=== PATIENT | male | born 1970 | race Caucasian/White ===

== ENCOUNTER 2022-12-30 10:31 | Outpatient (AMB) | payer OTHER, SELFPAY ==
[2022-12-30 10:46] VITALS: BP 159/95; PULSE 77; BMI 25.5
--- NOTE | 2022-12-30 10:46 | A.OFFVIS_ITS ---
Intake Vital Signs 12/30/22 10:46 Height 5 ft 8.5 in Weight 170 lb 3.15 oz BMI 25.5 BP 159/95 H Blood Pressure Location Lt brachial Position Sitting Pulse 77 Intake Visit Reasons: Colonoscopy Screening Intake Note: Freddie presents in office as a new.patient for a colonoscopy screening. 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 He has very good appetite. No cardiac or respiratory issues New nausea, vomiting, hematemesis, hematochezia fever or chills PFSH Medical History Elevated blood pressure reading Surgical History History of tonsillectomy Status post myringotomy with tube placement of both ears Family History Father Hypertension Impaired fasting glucose Mother No problems noted. 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 Cognitive needs: No Hearing needs: No Vision needs: Yes (glasses) Review of Systems Const All systems reviewed & are unremarkable except as noted in HPI and below Card Denies chest pain and Denies dyspnea Resp Denies dyspnea GI Denies abdominal pain, Denies change in bowel habits, Denies heartburn, Denies diarrhea and Denies nausea Physical Exam Vital Signs: Last Vital Signs Pulse 77 12/30/22 10:46 BP 159/95 H 12/30/22 10:46 BMI result Body Mass Index 25.5 Const General: cooperative, healthy appearing, comfortable and no acute distress Eyes Sclerae: sclerae normal Resp Effort & Inspection: normal respiratory effort and able to speak in complete sentences Auscultation: clear to auscultation bilaterally, no rales, no rhonchi and no wheezes Cardio Rate: regular rate Rhythm: regular rhythm Heart sounds: S1 normal heart sound present and S2 normal heart sound present GI Inspection: Yes normal to inspection Palpation (GI): Soft to palpation and nontender Auscultation: normal bowel sounds Skin General skin exam: no rashes or lesions noted Extrem General: Yes full ROM Psych Appearance: grossly normal and well kempt Mental Status: mental status grossly normal Speech and movement: Normal speech and movement present and Clear speech present Affect: normal affect Attitude: cooperative Thought process: Normal thought process present Thought content: Normal thought content present Assessment & Plan Assessment & Plan (1) Colon cancer screening: Code(s): Z12.11 - Encounter for screening for malignant neoplasm of colon Plan: Index screening colonoscopy- MG prep Plan Index screening MiraLax Gatorade prep Orders: Orders Colonoscopy - GI Use Only 12/30/22 Z12.11 - Encounter for screening for malignant neoplasm of colon Medications: New bisacodyl (Dulcolax (bisacodyl)) Take 4 tablets by mouth at 12:00pm the day before your procedure. 20 mg (4 x 5 mg) PO ONCE 1 day 4 tabs 0RF colonoscopy prep Z12.11 - Encounter for screening for malignant neoplasm of colon polyethylene glycol 3350 (Miralax) Take as directed by mouth the day before your procedure. 238 grams PO ONCE 1 day PRN 238 grams 0RF laxative effect Patient Instructions: A 52 y/o male referred for index screening colonoscopy Discussed procedure, risk, need for escort-MiraLax Gatorade split prep literature given Encouraged to call with questions or concerns Appreciate the opportunity to assist in the care of the pain Coding Level of Care Code New Pt Level 3 (59734) Diagnoses Colon cancer screening Z12.11
== END 2022-12-30 12:26 | disposition home or self-care (01) ==
PROVIDERS: Visit Provider Physician Assistant
DX: Z01.818 Encounter for other preprocedural examination (principal); Z12.11 Encounter for screening for malignant neoplasm of colon
CPT/HCPCS: 99203

== ENCOUNTER → 2022-12-30 10:31 | Outpatient (BNVA) | payer OTHER, SELFPAY | PROVIDERS: Visit Provider Physician Assistant ==

== ENCOUNTER 2023-03-23 07:47 | Outpatient (REF) | payer OTHER, SELFPAY ==
[2023-03-23 07:57] LABS: MANUAL DIFF FLAG NO
[2023-03-23 08:56] LABS: Basophils Percent Auto 0.7 % (0-2); Eosinophils Absolute Auto 0.2 X10*3/uL (0.0-0.4); Eosinophils Percent Auto 3.5 % (0-4); Hematocrit 47.7 % (42.0-52.0); Hemoglobin 16.6 g/dl (14.0-18.0); Imm Gran Abs Auto 0.02 X10*3/uL (0.00-0.03); Imm Gran Pct Auto 0.3 % (0.0-0.4); Lymphocytes Absolute Auto 2.2 X10*3/uL (1.2-4.9); Lymphocytes Percent Auto 35.8 % (20-40); Mean Corpuscular HGB Conc 34.8 g/dl (31.0-36.0); Mean Corpuscular Hemoglobin 31.9 pg (27.0-33.0); Mean Corpuscular Volume 91.7 fL (80.0-98.0); Mean Platelet Volume 9.5 fL (9.4-12.4); Monocytes Absolute Auto 0.5 X10*3/uL (0.1-1.2); Monocytes Percent Auto 8.3 % (2-11); Neutrophils Absolute Auto 3.1 x10*3/uL (2.0-8.3); Neutrophils Percent Auto 51.4 % (45-73); Platelet Count 259 X10*3/uL (160-400); Red Cell Distribution Width 11.9 % (11.0-16.0)
[2023-03-23 09:34] LABS: Alanine Aminotransferase 8 U/L (0-40); Albumin Level 4.5 g/dL (3.5-5.0); Alkaline Phosphatase 62 U/L (39-117); Anion Gap 12 (12-20); Aspartate Amino Transferase 16 U/L (5-37); Bilirubin Total 0.7 mg/dL (0.0-1.0); Blood Urea Nitrogen 18 mg/dL (9-16); Calcium 10.1 mg/dL (8.4-10.2); Carbon Dioxide 30 mmol/L (22-29); Chloride 103 mmol/L (96-108); Cholesterol 205 mg/dL (<200); Estimated Glomerular Filt Rate > 60; Glucose Fasting 89 mg/dL (60-99); HDL Cholesterol 59 mg/dL (>40); LDL Cholesterol Calculated 130 mg/dL (<100); Potassium 4.5 mmol/L (3.3-5.1); Sodium 140 mmol/L (135-145); Total Protein 7.2 g/dL (6.5-8.0); Triglycerides 84 mg/dL (<150)
[2023-03-23 09:38] LABS: Appearance Urine Clear; Color Urine Yellow; Glucose Urine UA Negative (Negative); Leukocyte Esterase Urine Trace (Negative); Nitrite Urine Negative (Negative); PH 5.5 (5.0-9.0); Specific Gravity - Urine 1.025 (1.005-1.025); UMIC TRIGGER UACC YES; Urine Blood Negative (Negative); Urine Ketones Negative (Negative); Urine Protein Negative (Neg-Trace)
[2023-03-23 09:42] LABS: Bacteria Urine None Seen (None Seen); Hyaline Casts Urine 0-2 /LPF (0-2); RBC Urine 0-2 /HPF (0-2); Squamous Epithelial Cell Urine 0-2 /HPF (0-2); WBC Urine 0-5 /HPF (0-5)
[2023-03-23 09:45] LABS: Prostate Specific Antigen Scr 0.48 ng/mL (<0.05-4.0)
[2023-03-23 09:56] LABS: Vitamin D 25-OH Total 33.5 ng/mL (>30)
== END 2023-03-23 07:48 | disposition home or self-care (01) ==
LOC: HO.LAB 07:47
PROVIDERS: PCP Internal Medicine; Visit Provider Internal Medicine
DX: Z00.00 Encounter for general adult medical examination without abnormal findings (principal); E78.00 Pure hypercholesterolemia, unspecified; E55.9 Vitamin D deficiency, unspecified
CPT/HCPCS: 36415; 80053; 80061; 81001; 82306; 84153; 84443; 85025

== ENCOUNTER 2023-03-29 15:23 | Outpatient (AMB) | payer OTHER, SELFPAY ==
[2023-03-29 15:31] VITALS: BP 158/94; PULSE 87; O2SAT 99; BMI 25.0
--- NOTE | 2023-03-29 15:31 | MHC.PC.OV ---
Vital Signs 03/29/23 15:31 03/29/23 16:09 Height 5 ft 8.5 in Weight 167 lb 2 oz BMI 25.0 BP 158/94 H 160/86 H Blood Pressure Location Lt brachial Lt brachial Position Sitting Sitting Pulse 87 Pulse Source Pulse Oximeter Pulse Oximetry (%) 99 Oxygen Delivery Method Room Air Intake Visit Reasons: elevated BP Tax Clerk Required: No Accompanied by: Self / Same As Patient Allergies No Known Allergies Allergy (Verified 09/28/23 16:30) Medication List - Last Reconciled 03/29/23 by Jeancarlos Denton MD bisacodyl (Dulcolax (bisacodyl)) 20 mg (4 x 5 mg) PO ONCE 1 day polyethylene glycol 3350 (Miralax) 238 grams PO ONCE PRN 1 day Tobacco use date assessed: 03/29/23 Dental Screening Dental Screen Date: 03/29/23 Did you have a dental visit in the last 12 months?: Yes Did you have a dental problem in the last 6 months where you did not have access to dental care?: No Was dental information given to patient?: Patient has dentist HPI elevated BP HPI Details Patient comes in today for his follow up visit States that he feels okay Notes that his blood pressure is still running high often but he denies any headaches or dizziness Denies any chest pains, no SOB No nausea/vomiting, no abdominal pain No change in bowel habits noted He is now scheduled for his colonoscopy in July 2023 He had his follow up labs done last week - to discuss his results [facility] Medical History (Updated 09/28/23 @ 16:41 by Jeancarlos Denton MD) Pure hypercholesterolemia Essential hypertension Surgical History (Updated 09/28/23 @ 16:42 by Jeancarlos Denton MD) Hx of colonoscopy Status post myringotomy with tube placement of both ears History of tonsillectomy Family History Father Hypertension Impaired fasting glucose Mother No problems noted. 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 1. Little interest or pleasure in doing things: not at all 2. Feeling down, depressed, or hopeless: not at all 3. Trouble falling or staying asleep, or sleeping too much: not at all 4. Feeling tired or having little energy: not at all 5. Poor appetite or overeating: not at all 6. Feeling bad about yourself - or that you are a failure or have let yourself or your family down: not at all 7. Trouble concentrating on things, such as reading the newspaper or watching television: not at all 8. Moving or speaking so slowly that other people could have noticed. Or the opposite - being so fidgety or restless that you have been moving around a lot more than usual: not at all 9. Thoughts that you would be better off or of hurting yourself in some way: not at all Total score: 0 Depression Screening Interpretation: Negative Depression Screening Done: Yes 09559 - PHQ-9 Billing: Yes Source: Developed by Drs. Leif Hale, Evelia Craig, Drew Wright and colleagues, with an educational nato from [employer]. Thrive Questionnaire Date Thrive assessed: 03/29/23 I am a: Patient What is your living situation today?: I have a steady place to live Within the past 12 months, did the food you bought not last and you didn't have the money to get more?: Never true Within the past 12 months, did you worry whether your food would run out before you got money to buy more?: Never true Do you have trouble paying for medicines?: No Do you have trouble getting transportation to medical appointments?: No Do you have trouble paying your heating and electricity bill?: No Do you have trouble taking care of your child, family member or friend?: No Do you have trouble with day-to-day activities such as bathing, preparing meals, shopping, managing finances, etc.?: No Are you currently unemployed and looking for a job?: No Are you interested in more education?: No Please select the resources that you would like help with: None Currently or been in a relationship where the following occur: no concerns reported AUDIT C Alcohol Use Questionnaire (AUDIT-C) 1. How often do you have a drink containing alcohol?: Monthly or less 2. How many drinks containing alcohol do you have on a typical day when you are drinking?: 1 or 2 3. How often do you have six or more drinks on one occasion?: Never Total Score: 1 Score Reviewed/Action Taken: Yes BERTRAM-7 AMB Questionnaire BERTRAM-7 Date BERTRAM - 7 assessed: 03/29/23 Feeling nervous, anxious, or on edge: 0 = Not at all Not being able to stop or control worryin = Not at all Worrying too much about different things: 0 = Not at all Trouble relaxin = Not at all Being so restless that it is hard to sit still: 0 = Not at all Becoming easily annoyed or irritable: 0 = Not at all Feeling afraid as if something awful might happen: 0 = Not at all Total BERTRAM-7 score (0-4 normal; 5-9 mild; 10-14 moderate; 15-21 severe): 0 Source: Developed by Drs. Leif Hale, Evelia Craig, Drew Wright and colleagues, with an educational nato from [employer]. Review of Systems Const Denies chills, Denies fatigue, Denies fever(s) and Denies headache(s) ENT Denies dysphagia, Denies dizziness, Denies otalgia, Denies headache(s), Denies neck pain, Denies odynophagia and Denies sore throat Card Denies chest pain, Denies palpitations and Denies dyspnea Resp Denies cough and Denies dyspnea GI Denies abdominal pain, Denies constipation, Denies dysphagia, Denies heartburn, Denies diarrhea, Denies nausea, Denies odynophagia and Denies vomiting Denies dysuria, Denies nocturia and Denies urinary frequency Musc Denies back pain and Denies neck pain Skin/Breast Denies rash Neuro Denies dizziness and Denies headache(s) Endo Denies fatigue and Denies palpitations Physical exam (Primary Care) Vital Signs: Last Vital Signs Pulse 87 03/29/23 15:31 BP 160/86 H 03/29/23 16:09 Pulse Ox 99 03/29/23 15:31 Oxygen Delivery Method Room Air 03/29/23 15:31 BMI result Body Mass Index 25.0 Tobacco/Smoking Status: Tobacco use Status Tobacco use date assessed 03/29/23 03/29/23 15:33 Patient Tobacco Use Status Never used Tobacco 03/29/23 15:33 e-Cigarette/Vaping Use Never Used 03/29/23 15:33 PHQ-9: PHQ-9 Score PHQ-9: Total score 0 03/29/23 16:04 Depression Screening Interpretation: Negative Thrive Assessment: Date of Thrive Assessment Date Thrive assessed 03/29/23 03/29/23 15:33 Currently or been in a relationship where the following occur: no concerns reported Const General: no acute distress and alert HENMT Ears: TM's normal bilaterally and EAC's normal Throat: Yes posterior oropharynx normal and Yes tonsils normal (no TP congestion) Neck Neck: Yes no lymphadenopathy and Yes supple Thyroid: Thyroid normal Resp Auscultation: clear to auscultation bilaterally, no rales and no wheezes Cardio Rate: regular rate Rhythm: regular rhythm Heart sounds: no murmurs GI Palpation (GI): Soft to palpation and nontender Auscultation: normal bowel sounds General: Yes no CVA tenderness Back/Spine/Pelvis Back: no CVA tenderness Skin Rashes: no rashes Extrem General: Yes no clubbing, cyanosis or edema Results Reviewed Results Reviewed: Laboratory Tests 03/23/23 07:55 WBC 6.0 Hgb 16.6 Hct 47.7 Plt Count 259 Sodium 140 Potassium 4.5 Creatinine 1.17 Estimated GFR > 60 Fasting Glucose 89 Calcium 10.1 AST 16 ALT 8 Triglycerides 84 Cholesterol 205 H LDL Cholesterol, Calc 130 H HDL Cholesterol 59 PSA Screen 0.48 25-OH Vitamin D Total 33.5 TSH 2.20 Ur Specific [place] 1.025 Urine Protein Negative Urine Glucose (UA) Negative Urine Blood Negative Urine Nitrite Negative Ur Leukocyte Esterase Trace H Assessment and Plan Assessment & Plan (1) Essential hypertension: Code(s): I10 - Essential (primary) hypertension Plan: Reinforced low sodium diet - goal is systolic BP of 120 mm or less Will go ahead and start patient on Lisinopril 2.5 mg QD Patient is reminded to continue monitoring his blood pressure regularly (2) Pure hypercholesterolemia: Code(s): E78.00 - Pure hypercholesterolemia, unspecified Plan: Results of his labs done last week reviewed and discussed with patient He is advised that his LDL cholesterol level is borderline high; all of his other labs are mostly within normal or acceptable parameters Discussed low cholesterol diet and advised that if he can get his cholesterol levels improved with diet modification, he should not require any Rx for this Will recheck his fasting lipids and labs in 6 months for follow up Plan Follow up in 6 months Orders: Orders Lipid Panel 6 Months E78.00 - Pure hypercholesterolemia, unspecified Comprehensive [place]. Panel Fast 6 Months E78.00 - Pure hypercholesterolemia, unspecified Medications: New lisinopril 2.5 mg PO DAILY 90 tabs 1RF 90 days Coding Level of Care Code Est Pt Level 4 (70542) Diagnoses Essential hypertension I10 Pure hypercholesterolemia E78.00
[2023-03-29 16:09] VITALS: BP 160/86
== END 2023-03-29 16:08 | disposition home or self-care (01) ==
PROVIDERS: Visit Provider Internal Medicine
DX: I10 Essential (primary) hypertension (principal); E78.00 Pure hypercholesterolemia, unspecified
CPT/HCPCS: 99499

== ENCOUNTER 2023-08-01 10:50 | Day surgery (SDC) | payer OTHER, SELFPAY ==
[2023-07-28 16:55] VITALS: BMI 25.5
--- NOTE | 2023-07-29 12:03 | HO.ANESPROP2 ---
Documented by User: Siri Wood NP 07/29/23 12:03 HPI - Anesthesia Eval Consult details Narrative: 53yo M for Colonoscopy [facility] Active Problems Active Problems: All Active Problems (Updated 09/24/22 @ 18:43 by Jeancarlos Denton MD) Colon cancer screening (Acute) Elevated blood pressure reading (Acute) Annual physical exam (Acute) Past Medical History Medical History Elevated blood pressure reading Family History Family History Father Hypertension Impaired fasting glucose Mother No problems noted. 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 Cognitive needs: No Hearing needs: No Vision needs: Yes (glasses) Meds Allergies Allergy/AdvReac Type Severity Reaction Status Date / Time No Known Allergies Allergy Verified 03/29/23 15:59 Exam Height,Weight and Vital Signs: Height 5 ft 8.5 in Weight 77.111 kg Assessment and Plan Assessment Anesthesia Assessment: Chart Reviewed Documented by User: Samira Mukherjee MD 08/01/23 11:22 [facility] Past Medical History Medical History Elevated blood pressure reading Family History Family History Father Hypertension Impaired fasting glucose Mother No problems noted. 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 Cognitive needs: No Hearing needs: No Vision needs: Yes (glasses) Meds Allergies Allergy/AdvReac Type Severity Reaction Status Date / Time No Known Allergies Allergy Verified 03/29/23 15:59 Exam Airway Mallampati Class: I (missing a couple, denies anythig loose) TM Dist: >3cm Neck ROM: Full Heart: rrr Lungs: cta Assessment and Plan Assessment Anesthesia Assessment: Anesthesia Plan Discussed Final Anesthetic Review Family History of Problems with Anesthesia: No History of Problems with Anesthesia: No NPO: Yes ASA Class: II Final Preanesthetic Review: No Changes in Pt Med Stat, Meds/Allgs Chart Reviewed and Consent Obtained/Reviewed Patient Risk: Low Procedure Risk: Low Anesthetic Plan Anesthetic Plan: MAC: Disposition: Standard PACU
[2023-08-01 11:03] VITALS: BMI 25.0
[2023-08-01 11:16] VITALS: BP 151/96; PULSE 86; RESP 18; TEMP 36.3; O2SAT 99
[2023-08-01 11:24] VITALS: BMI 25.0
[2023-08-01] MEDS: Lactated Ringers 1,000 ML 100 ML IVCONT (11:29)
--- NOTE | 2023-08-01 11:40 | MHC.SHP ---
Pre-Procedural Eval Section A - 24 Hr Update-Section A only Date of Service: 08/01/23 The patient is an INPATIENT: No The patient has been examined within 24 hours of the surgical procedure. The History & Physical has been completed within 30 days and I have reviewed it.: No Section B - Complete if H&P > 30 days Chief Complaint: screening Relevant Family History (Specify if Yes): No Relevant Social History: None Present Medications: see Short Stay Collaborative assessment Medical History: No relevant PMH History of Previous Operations: Relevant previous surgery/procedure and date(s) (History of tonsillectomy Status post myringotomy with tube placement of both ears) Allergies: Allergies Allergy/AdvReac Type Severity Reaction Status Date / Time No Known Allergies Allergy Verified 03/29/23 15:59 Review of Systems Sugical H&P ROS: Negative: Constitution, Cardiovascular, Respiratory and Gastrointestinal Exam Surgical H&P Exam: Normal: Heart, Normal: Lungs, Normal: Extremities and Normal: Abdomen Plan Diagnosis/Plan: Unchanged I have reviewed the history and physical and performed a pertinent physical examination on my patient. No changes have occurred unless specified. Time Spent With Patient Time: Total time managing care of this patient today ____ minutes.
--- NOTE | 2023-08-01 11:45 | P.OP_ITS ---
Operative Note Operative Note Date of Service: 08/01/23 Narrative: COLONOSCOPY TILL CECUM WITH BIOPSIES AND SNARE POLYPECTOMY Pre-op diagnosis: Colon cancer screening - 1st colonoscopy Post-op diagnosis:? Colon polyps, diverticulosis, hemorrhoids Endoscopist:? Jl Gonzalez MD Anesthesia:?MAC Consent: Indications for the procedure and potential complications of bleeding, perforation, reaction to medications and missed diagnosis were discussed with the patient and informed consent was obtained. Instrument: Olympus CF H 190 L variable stiffness adult colonoscope Monitoring: Vital signs and clinical assessment, intermittent blood pressure monitoring, continuous EKG monitoring, Pulse oximetry and Carbon Dioxide monitoring were done throughout the procedure. Please see anesthesia flowsheet. Colon withdrawl time was 21 minutes. Procedure: The patient was placed in the left lateral decubitis position and pre-procedure medications were administered. After a digital rectal examination of the ano-rectum, the video colonoscope was inserted into the rectum and advanced through the colon to the cecum. The colonoscope was slowly withdrawn in a retrograde panoramic fashion and the colon mucosa was carefully examined including a retroflexed view of the rectum. Findings and interventions are described below. Procedure Difficulty: Without difficulty Findings: Terminal Ileum: Not evaluated Cecum: Normal Ascending Colon: A 6-7 mm sessile polyp in the proximal ascending colon - removed with a cold snare. 4-5 mm sessile polyp - removed with a cold biopsy Transverse Colon: Normal Descending Colon: Moderate diverticulosis Sigmoid Colon: Three 5-7 mm sessile polyp - removed with a cold snare. Moderate diverticulosis Rectum: Two 4-5 mm sessile polyps - removed with a cold snare. A 10-12 mm sessile polyp - removed with a hot snare. Ano-rectum: Small internal hemorrhoids Colon preparation: Excellent [place] Bowel Preparation Scale Right colon; 3 Transverse colon: 3 Left colon; 3 (0 = Unprepared colon segment with mucosa not seen due to solid stool that cannot be cleared. 1 = Portion of mucosa of the colon segment seen, but other areas of the colon segment not well seen due to staining, residual stool and/or opaque liquid. 2 = Minor amount of residual staining, small fragments of stool and/or opaque liquid, but mucosa of colon segment seen well. 3 = Entire mucosa of colon segment seen well with no residual staining, small fragments of stool or opaque liquid) Impression and Post Procedure Diagnosis: Colonoscopy Findings: Seven small and one medium sized polyps removed Moderate diverticulosis seen in the left colon Small hemorrhoids on retroflexed exam. Plan: Await pathology results Patient has an appointment on 08/16/23 in the GI [facility] with JENY Rapp. Repeat Colonoscopy interval based on path results - in 2-3 years if multiple casey yps are adenomatous and 10 years if polyps are hyperplastic. Above findings were reviewed with the patient and colon polyps and diverticulosis handouts were given in the discharge area
[2023-08-01 12:25] VITALS: BP 116/79; PULSE 90; RESP 16; TEMP 36.4; O2SAT 99
[2023-08-01 12:41] VITALS: BP 121/82; PULSE 78; RESP 17; TEMP 36.4; O2SAT 99
== END 2023-08-01 13:15 | disposition home or self-care (01) ==
PROVIDERS: Visit Provider Internal Medicine Gastroenterology
PROC: 0DJD8ZZ Inspection of Lower Intestinal Tract, Via Natural or Artificial Opening Endoscopic (ICD-10-PCS; CPT 45378; principal; 2023-08-01 12:40)
DX: Z12.11 Encounter for screening for malignant neoplasm of colon (principal); D12.2 Benign neoplasm of ascending colon; K63.5 Polyp of colon; K62.1 Rectal polyp; K57.30 Diverticulosis of large intestine without perforation or abscess without bleeding; K64.8 Other hemorrhoids; R03.0 Elevated blood-pressure reading, without diagnosis of hypertension; Z98.890 Other specified postprocedural states
CPT/HCPCS: 45385; 45380; 88305; J2704

== ENCOUNTER → 2023-08-01 10:50 | Outpatient (BNV) | payer OTHER, SELFPAY | PROVIDERS: Visit Provider Internal Medicine Gastroenterology | DX: Z12.11 Encounter for screening for malignant neoplasm of colon (principal); K63.5 Polyp of colon; K57.90 Diverticulosis of intestine, part unspecified, without perforation or abscess without bleeding; K64.8 Other hemorrhoids | CPT/HCPCS: 45380; 45385 ==

== ENCOUNTER 2023-08-30 13:18 | Outpatient (AMB) | payer OTHER, SELFPAY ==
--- NOTE | 2023-08-30 13:26 | MHC.OFFVIS ---
Intake Vital Signs 08/30/23 13:27 Height 5 ft 8.5 in Weight 160 lb 14.999 oz BMI 24.1 BP 146/84 H Blood Pressure Location Lt brachial Position Sitting Pulse 95 Intake Visit Reasons: S/p colon Intake Note: Freddie presents in the office as a follow up colonoscopy. CC: He states that he is just here for the results - everything went well. Allergies No Known Allergies Allergy (Verified 08/30/23 13:28) Medication List - Last Reconciled 08/30/23 by Layne Yanez PA-C lisinopril 2.5 mg PO DAILY 90 days HPI HPI Comments History of Present Illness Details A pleasant 53-year-old male follows up after recent index screening colonoscopy with polypectomy He tolerated procedure well We reviewed procedure report, pathology as well as recommendations Diverticulosis, polyps as well as hemorrhoids Opportunity for questions answered to his satisfaction Reviewed high-fiber diet menu choices literature given He has had no issues with hemorrhoid PFSH Medical History Elevated blood pressure reading Surgical History Hx of colonoscopy Status post myringotomy with tube placement of both ears History of tonsillectomy Family History Father Hypertension Impaired fasting glucose Mother No problems noted. Social History Housing: House Alcohol intake: current Alcohol intake frequency: a few times a month Patient Tobacco Use Status: Never used Tobacco e-Cigarette/Vaping Use: Never Used Second Hand Smoke Exposure: No service: No Current occupational status: employed Current occupation: [employer] Cognitive needs: No Hearing needs: No Vision needs: Yes (glasses) Review of Systems Const All systems reviewed & are unremarkable except as noted in HPI and below Physical Exam Vital Signs: Last Vital Signs Pulse 95 08/30/23 13:27 BP 146/84 H 08/30/23 13:27 BMI result Body Mass Index 24.1 Const General: cooperative, healthy appearing, comfortable and no acute distress Orientation/consciousness: patient oriented x3 Limitations: no limitations Skin General skin exam: no rashes or lesions noted Neuro General: patient oriented x3 Extrem General: Yes full ROM Psych Appearance: grossly normal and well kempt Mental Status: mental status grossly normal Speech and movement: Normal speech and movement present Affect: normal affect Attitude: cooperative Thought process: Normal thought process present Thought content: Normal thought content present Insight: Good insight present (Psych) Judgement: Good judgement present (Psych) Results Reviewed Results Reviewed: Impression and Post Procedure Diagnosis: Colonoscopy Findings: Seven small and one medium sized polyps removed Moderate diverticulosis seen in the left colon Small hemorrhoids on retroflexed exam. Plan: Await pathology results Patient has an appointment on 08/16/23 in the [facility] with JENY Rapp. Repeat Colonoscopy interval based on path results - in 2-3 years if multiple polyps are adenomatous and 10 years if polyps are hyperplastic. Above findings were reviewed with the patient and colon polyps and diverticulosis handouts were given in the discharge area markel: Freddie Agarwal Age/Sex: 53/M Attending: Jl Gonzalez MD : 1970 Submitted by: Jl Gonzalez MD Copies to: MR #: [id number] Status: [facility] Collected: 08/01/23 Location: [facility] Received: 08/01/23 Diagnosis A. Colon, ascending, polyps: Tubular adenomas, two; negative for high-grade dysplasia and carcinoma. B. Colon, sigmoid, polyps: Hyperplastic polyps, two. C. Colon, rectal polyps: Hyperplastic polyps, two, and polypoid colonic mucosa with minor hyperplastic changes and prominent muscularis suggesting polypoid leiomyoma. Clinical History Pre-Op Dx: Screening Post-Op Dx: Colon polyps, diverticulosis and hemorrhoids Microscopic Description Microscopic sections reviewed. Material Received A. Ascending colon polyps B. Sigmoid polyps C. Rectal polyps Gross Description A. Received in formalin are 2 mann 2 mm soft tissue fragments, totally submitted in A1. B. Received in formalin are 4 mann 2 mm soft tissue fragments, totally submitted in B1. C. Received in formalin are 3 mann 2-6 mm soft tissue fragments, the larger of which is inked at the base and bisected, totally submitted in C1. (JEVON) NOTE: Unless otherwise stated, all tissue is formalin-fixed and paraffin-embedded. Some or all of the immunohistochemical tests reported herein may have been developed and their performance characteristics determined by [facility]. They have not been cleared or approved by the U.S. Food and Drug Administration (FDA). However, the FDA has determined that such clearance or approval is not necessary. This laboratory is certified under the Clinical Laboratory Improvement Amendments of 1988 (CLIA) as qualified to perform high complexity clinical laboratory testing. Electronically Signed By: Svitlana Tamez 08/02/23 1136 Patient: Freddie Agarwal Age/Sex: 53/M MR#: [id number] Page 1 of 1 Assessment & Plan Assessment & Plan (1) Tubular adenoma: Code(s): D36.9 - Benign neoplasm, unspecified site Plan: Repeat asymptomatic colonoscopy 3 (2) Hyperplastic colon polyp: Code(s): K63.5 - Polyp of colon (3) Diverticulosis of colon: Code(s): K57.30 - Diverticulosis of large intestine without perforation or abscess without bleeding Plan: ER protocol Maintain high-fiber diet (4) Hemorrhoids: Code(s): K64.9 - Unspecified hemorrhoids Plan: Avoid straining Plan HFD AFDR- begin screen @ 43 Colonoscopy- 3 years Patient Instructions: 53-year-old male follows up after recent index screening colonoscopy with polypectomy Seven polyps in total, 2 of which were adenomas repeat asymptomatic colonoscopy 3 years as requested by MD All first-degree relatives begin screening at age 43 Reviewed diverticulosis/diverticulitis ER protocol Maintain high-fiber diet Fiber supplements would be beneficial if unable to maintain Foods to avoid nuts, seeds, corn ETC P Coding Level of Care Code Est Pt Level 3 (87788) Diagnoses Tubular adenoma D36.9 Hyperplastic colon polyp K63.5 Diverticulosis of colon K57.30 Hemorrhoids K64.9 Time Spent (min) 20
[2023-08-30 13:27] VITALS: BP 146/84; PULSE 95; BMI 24.1
== END 2023-08-30 14:33 | disposition home or self-care (01) ==
PROVIDERS: PCP Internal Medicine; Visit Provider Physician Assistant
DX: D36.9 Benign neoplasm, unspecified site (principal); K63.5 Polyp of colon; K57.30 Diverticulosis of large intestine without perforation or abscess without bleeding; K64.9 Unspecified hemorrhoids
CPT/HCPCS: 99213

== ENCOUNTER → 2023-08-30 13:18 | Outpatient (BNVA) | payer OTHER, SELFPAY | PROVIDERS: PCP Internal Medicine; Visit Provider Physician Assistant | DX: D36.9 Benign neoplasm, unspecified site (principal); K63.5 Polyp of colon; K57.30 Diverticulosis of large intestine without perforation or abscess without bleeding; K64.9 Unspecified hemorrhoids | CPT/HCPCS: 99212 ==

== ENCOUNTER 2023-09-21 07:40 | Outpatient (REF) | payer OTHER, SELFPAY ==
[2023-09-21 09:15] LABS: Alanine Aminotransferase 8 U/L (0-40); Albumin Level 4.3 g/dL (3.5-5.0); Alkaline Phosphatase 51 U/L (39-117); Anion Gap 11 (12-20); Aspartate Amino Transferase 14 U/L (5-37); Bilirubin Total 0.6 mg/dL (0.0-1.0); Blood Urea Nitrogen 12 mg/dL (9-16); Calcium 9.5 mg/dL (8.4-10.2); Carbon Dioxide 31 mmol/L (22-29); Chloride 104 mmol/L (96-108); Cholesterol 196 mg/dL (<200); Estimated Glomerular Filt Rate > 60; Glucose Fasting 94 mg/dL (60-99); HDL Cholesterol 63 mg/dL (>40); LDL Cholesterol Calculated 116 mg/dL (<100); Potassium 4.4 mmol/L (3.3-5.1); Sodium 142 mmol/L (135-145); Triglycerides 87 mg/dL (<150)
== END 2023-09-21 07:41 | disposition home or self-care (01) ==
LOC: HO.LAB 07:40
PROVIDERS: PCP Internal Medicine; Visit Provider Internal Medicine
DX: E78.00 Pure hypercholesterolemia, unspecified (principal)
CPT/HCPCS: 36415; 80053; 80061

== ENCOUNTER 2023-09-28 15:49 | Outpatient (AMB) | payer OTHER, SELFPAY ==
[2023-09-28 15:49] VITALS: BP 122/78; PULSE 95; O2SAT 97; BMI 24.0
--- NOTE | 2023-09-28 15:49 | A.OFFPC_ITS ---
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: No Allergies No Known Allergies Allergy (Verified 09/28/23 16:30) Medication List - Last Reconciled 09/28/23 by Jeancarlos Denton MD lisinopril 2.5 mg PO DAILY 90 days Tobacco use date assessed: 09/28/23 Dental Screening Dental Screen Date: 09/28/23 HPI 6mth f/u HPI Details Patient comes in today for his follow up visit States that he feels okay He denies any headaches or dizziness Denies any chest pains, no SOB No nausea/vomiting, no abdominal pain No change in bowel habits noted Had his follow up labs done last week - to discuss his results [facility] Medical History (Updated 09/28/23 @ 16:41 by Jeancarlos Denton MD) Pure hypercholesterolemia Essential hypertension Surgical History (Updated 09/28/23 @ 16:42 by Jeancarlos Denton MD) Hx of colonoscopy Status post myringotomy with tube placement of both ears History of tonsillectomy Family History Father Hypertension Impaired fasting glucose Mother No problems noted. 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 1. Little interest or pleasure in doing things: not at all 2. Feeling down, depressed, or hopeless: not at all 3. Trouble falling or staying asleep, or sleeping too much: not at all 4. Feeling tired or having little energy: not at all 5. Poor appetite or overeating: not at all 6. Feeling bad about yourself - or that you are a failure or have let yourself or your family down: not at all 7. Trouble concentrating on things, such as reading the newspaper or watching television: not at all 8. Moving or speaking so slowly that other people could have noticed. Or the opposite - being so fidgety or restless that you have been moving around a lot more than usual: not at all 9. Thoughts that you would be better off or of hurting yourself in some way: not at all Total score: 0 Depression Screening Interpretation: Negative Depression Screening Done: Yes 91152 - PHQ-9 Billing: Yes Source: Developed by Drs. Leif Hale, Evelia Craig, Drew Wright and colleagues, with an educational nato from [employer]. Thrive Questionnaire Date Thrive assessed: 09/28/23 I am a: Patient What is your living situation today?: I have a steady place to live Within the past 12 months, did the food you bought not last and you didn't have the money to get more?: Never true Within the past 12 months, did you worry whether your food would run out before you got money to buy more?: Never true Do you have trouble paying for medicines?: No Do you have trouble getting transportation to medical appointments?: No Do you have trouble paying your heating and electricity bill?: No Do you have trouble taking care of your child, family member or friend?: No Do you have trouble with day-to-day activities such as bathing, preparing meals, shopping, managing finances, etc.?: No Are you currently unemployed and looking for a job?: No Are you interested in more education?: No Please select the resources that you would like help with: None Currently or been in a relationship where the following occur: no concerns reported THRIVE Score: 0 AUDIT C Alcohol Use Questionnaire (AUDIT-C) 1. How often do you have a drink containing alcohol?: Monthly or less 2. How many drinks containing alcohol do you have on a typical day when you are drinking?: 1 or 2 3. How often do you have six or more drinks on one occasion?: Never Total Score: 1 Score Reviewed/Action Taken: Yes BERTRAM-7 AMB Questionnaire BERTRAM-7 Date BERTRAM - 7 assessed: 09/28/23 Source: Developed by Drs. Leif Hale, Evelia Craig, Drew Wright and colleagues, with an educational nato from [employer]. Review of Systems Const Denies chills, Denies fatigue, Denies fever(s) and Denies headache(s) ENT Denies dysphagia, Denies dizziness, Denies otalgia, Denies headache(s), Denies neck pain, Denies odynophagia and Denies sore throat Card Denies chest pain, Denies palpitations and Denies dyspnea Resp Denies cough and Denies dyspnea GI Denies abdominal pain, Denies constipation, Denies dysphagia, Denies heartburn, Denies diarrhea, Denies nausea, Denies odynophagia and Denies vomiting Denies dysuria, Denies nocturia and Denies urinary frequency Musc Denies back pain and Denies neck pain Skin/Breast Denies rash Neuro Denies dizziness and Denies headache(s) Endo Denies fatigue and Denies palpitations Physical exam (Primary Care) Vital Signs: Last Vital Signs Pulse 95 09/28/23 15:49 BP 122/78 09/28/23 15:49 Pulse Ox 97 09/28/23 15:49 Oxygen Delivery Method Room Air 09/28/23 15:49 BMI result Body Mass Index 24.0 Tobacco/Smoking Status: Tobacco use Status Tobacco use date assessed 09/28/23 09/28/23 15:51 Patient Tobacco Use Status Never used Tobacco 09/28/23 15:51 e-Cigarette/Vaping Use Never Used 09/28/23 15:51 PHQ-9: PHQ-9 Score PHQ-9: Total score 0 09/28/23 16:20 Depression Screening Interpretation: Negative Thrive Assessment: Date of Thrive Assessment Date Thrive assessed 09/28/23 09/28/23 15:51 Currently or been in a relationship where the following occur: no concerns reported Const General: no acute distress and alert HENMT Throat: Yes posterior oropharynx normal and Yes tonsils normal Neck Neck: Yes no lymphadenopathy and Yes supple Thyroid: Thyroid normal Resp Auscultation: clear to auscultation bilaterally, no rales and no wheezes Cardio Rate: regular rate Rhythm: regular rhythm Heart sounds: no murmurs GI Palpation (GI): Soft to palpation and nontender Auscultation: normal bowel sounds Skin Rashes: no rashes Extrem General: Yes no clubbing, cyanosis or edema Results Reviewed Results Reviewed: Laboratory Tests 09/21/23 07:50 Sodium 142 Potassium 4.4 Creatinine 1.15 Estimated GFR > 60 Fasting Glucose 94 Calcium 9.5 AST 14 ALT 8 Triglycerides 87 Cholesterol 196 LDL Cholesterol, Calc 116 H HDL Cholesterol 63 Assessment and Plan Assessment & Plan (1) Essential hypertension: Code(s): I10 - Essential (primary) hypertension Plan: Reinforced low sodium diet - goal is systolic BP of 120 mm or less Continue Lisinopril 2.5 mg QD Patient is reminded to continue monitoring his blood pressure regularly (2) Pure hypercholesterolemia: Code(s): E78.00 - Pure hypercholesterolemia, unspecified Plan: Results of his labs done last week reviewed and discussed with patient - have advised patient that his LDL and total cholesterol levels have improved slightly from previous Reinforced low cholesterol diet Will have him recheck his labs and fasting lipids in 6 months for follow up (3) Tubular adenoma: Code(s): D36.9 - Benign neoplasm, unspecified site Plan: He had a couple of tubular adenoma lesions on his colonoscopy done back in July 2023 and he has already been advised by Dr. Gonzalez that he will need a repeat colonoscopy in 3 years (2026) Plan To return in 6 months for his next annual physical examination Orders: Orders Lipid Panel 6 Months E78.00 - Pure hypercholesterolemia, unspecified, Z00.00 - Encounter for general adult medical examination without abnormal findings Comprehensive [place]. Panel Fast 6 Months E78.00 - Pure hypercholesterolemia, unspecified, Z00.00 - Encounter for general adult medical examination without abnormal findings TSH reflex Free T4 6 Months E78.00 - Pure hypercholesterolemia, unspecified, Z00.00 - Encounter for general adult medical examination without abnormal findings UA CC w/rflx Micro + Cult 6 Months R30.0 - Dysuria, Z00.00 - Encounter for general adult medical examination without abnormal findings Prostate Specific Antigen Scr 6 Months Z00.00 - Encounter for general adult medical examination without abnormal findings Complete Blood Count Auto Diff 6 Months D64.9 - Anemia, unspecified, Z00.00 - Encounter for general adult medical examination without abnormal findings Vitamin D 25-OH Total 6 Months E55.9 - Vitamin D deficiency, unspecified Coding Level of Care Code Est Pt Level 3 (50898) Diagnoses Essential hypertension I10 Pure hypercholesterolemia E78.00 Tubular adenoma D36.9
== END 2023-09-28 16:42 | disposition home or self-care (01) ==
PROVIDERS: PCP Internal Medicine; Visit Provider Internal Medicine
DX: I10 Essential (primary) hypertension (principal); E78.00 Pure hypercholesterolemia, unspecified; D36.9 Benign neoplasm, unspecified site
CPT/HCPCS: 99213

== ENCOUNTER 2024-03-20 07:42 | Outpatient (REF) | payer OTHER, SELFPAY ==
[2024-03-20 07:51] LABS: MANUAL DIFF FLAG NO
[2024-03-20 08:18] LABS: Basophils Absolute Auto 0.1 X10*3/uL (0.0-0.2); Basophils Percent Auto 0.9 % (0-2); Eosinophils Absolute Auto 0.2 X10*3/uL (0.0-0.4); Eosinophils Percent Auto 3.1 % (0-4); Hematocrit 45.4 % (42.0-52.0); Hemoglobin 15.7 g/dl (14.0-18.0); Imm Gran Abs Auto 0.02 X10*3/uL (0.00-0.03); Imm Gran Pct Auto 0.3 % (0.0-0.4); Lymphocytes Absolute Auto 1.9 X10*3/uL (1.2-4.9); Lymphocytes Percent Auto 31.7 % (20-40); Mean Corpuscular HGB Conc 34.6 g/dl (31.0-36.0); Mean Corpuscular Hemoglobin 32.8 pg (27.0-33.0); Monocytes Absolute Auto 0.5 X10*3/uL (0.1-1.2); Neutrophils Absolute Auto 3.2 x10*3/uL (2.0-8.3); Platelet Count 236 X10*3/uL (160-400); Red Blood Count 4.78 X10*6/uL (4.60-5.80); Red Cell Distribution Width 11.7 % (11.0-16.0); White Blood Count 5.9 X10*3/uL (4.8-10.8)
[2024-03-20 08:18] LABS: Appearance Urine Clear; Color Urine Yellow; Glucose Urine UA Negative (Negative); Leukocyte Esterase Urine Negative (Negative); Nitrite Urine Negative (Negative); Urine Blood Negative (Negative); Urine Ketones Negative (Negative); Urine Protein Negative (Neg-Trace)
[2024-03-20 08:58] LABS: Alanine Aminotransferase 9 U/L (0-40); Albumin Level 4.4 g/dL (3.5-5.0); Alkaline Phosphatase 55 U/L (39-117); Anion Gap 13 (12-20); Aspartate Amino Transferase 14 U/L (5-37); Bilirubin Total 0.7 mg/dL (0.0-1.0); Blood Urea Nitrogen 12 mg/dL (9-16); Calcium 9.6 mg/dL (8.4-10.2); Carbon Dioxide 29 mmol/L (22-29); Chloride 103 mmol/L (96-108); Cholesterol 194 mg/dL (<200); Estimated Glomerular Filt Rate > 60; Glucose Fasting 113 mg/dL (60-99); HDL Cholesterol 73 mg/dL (>40); LDL Cholesterol Calculated 109 mg/dL (<100); Potassium 4.3 mmol/L (3.3-5.1); Sodium 141 mmol/L (135-145); Triglycerides 63 mg/dL (<150)
[2024-03-20 09:18] LABS: TSH reflex Free T4 2.41 uIU/mL (0.32-4.0); Vitamin D 25-OH Total 36.6 ng/mL (>30)
== END 2024-03-20 07:43 | disposition home or self-care (01) ==
LOC: HO.LAB 07:42
PROVIDERS: PCP Internal Medicine; Visit Provider Internal Medicine
DX: Z00.00 Encounter for general adult medical examination without abnormal findings (principal); E55.9 Vitamin D deficiency, unspecified; R30.0 Dysuria; E78.00 Pure hypercholesterolemia, unspecified; D64.9 Anemia, unspecified
CPT/HCPCS: 36415; 80053; 80061; 81003; 82306; 84153; 84443; 85025

== ENCOUNTER 2024-03-30 14:37 | Outpatient (AMB) | payer OTHER, SELFPAY ==
--- NOTE | 2024-03-30 14:44 | A.OFFPC_ITS ---
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 [employer] Required: No Accompanied by: Self / Same As Patient Allergies No Known Allergies Allergy (Verified 03/30/24 15:36) Medication List - Last Reconciled 03/30/24 by Jeancarlos Denton MD lisinopril 2.5 mg PO DAILY 90 days Tobacco use date assessed: 03/30/24 Dental Screening Dental Screen Date: 03/30/24 Did you have a dental visit in the last 12 months?: No Did you have a dental problem in the last 6 months where you did not have access to dental care?: No Was dental information given to patient?: No HPI annual PE HPI Details Patient comes in today for his annual physical examination States that he feels okay He denies any headaches or dizziness Denies any chest pains, no shortness of breath No nausea/vomiting, no abdominal pain No change in bowel habits noted He denies any acute urinary symptoms He had his follow-up labs done last week - to discuss his results He had his screening colonoscopy done earlier this year on 08/01/2023 - (+) tubular adenoma and he is advised to get a repeat colonoscopy in 3 years (2026) PFSH Medical History Pure hypercholesterolemia Essential hypertension Surgical History Hx of colonoscopy Status post myringotomy with tube placement of both ears History of tonsillectomy Family History Father Hypertension Impaired fasting glucose Mother No problems noted. 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 1. Little interest or pleasure in doing things: not at all 2. Feeling down, depressed, or hopeless: not at all 3. Trouble falling or staying asleep, or sleeping too much: not at all 4. Feeling tired or having little energy: not at all 5. Poor appetite or overeating: not at all 6. Feeling bad about yourself - or that you are a failure or have let yourself or your family down: not at all 7. Trouble concentrating on things, such as reading the newspaper or watching television: not at all 8. Moving or speaking so slowly that other people could have noticed. Or the opposite - being so fidgety or restless that you have been moving around a lot more than usual: not at all 9. Thoughts that you would be better off or of hurting yourself in some way: not at all Total score: 0 Depression Screening Interpretation: Negative Depression Screening Done: Yes 93799 - PHQ-9 Billing: Yes Source: Developed by Drs. Leif Hale, Evelia Craig, Drew Wright and colleagues, with an educational nato from [employer]. Thrive Questionnaire Date Thrive assessed: 03/30/24 I am a: Patient What is your living situation today?: I have a steady place to live Within the past 12 months, did the food you bought not last and you didn't have the money to get more?: Never true Within the past 12 months, did you worry whether your food would run out before you got money to buy more?: Never true Do you have trouble paying for medicines?: No Do you have trouble getting transportation to medical appointments?: No Do you have trouble paying your heating and electricity bill?: No Do you have trouble taking care of your child, family member or friend?: No Do you have trouble with day-to-day activities such as bathing, preparing meals, shopping, managing finances, etc.?: No Are you currently unemployed and looking for a job?: No Are you interested in more education?: No Please select the resources that you would like help with: None Currently or been in a relationship where the following occur: No concerns reported THRIVE Score: 0 AUDIT C Alcohol Use Questionnaire (AUDIT-C) 1. How often do you have a drink containing alcohol?: 4 or more times a week 2. How many drinks containing alcohol do you have on a typical day when you are drinking?: 3 or 4 3. How often do you have six or more drinks on one occasion?: Never Total Score: 5 Score Reviewed/Action Taken: Yes BERTRAM-7 AMB Questionnaire BERTRAM-7 Date BERTRAM - 7 assessed: 03/30/24 Feeling nervous, anxious, or on edge: 0 = Not at all Not being able to stop or control worryin = Not at all Worrying too much about different things: 0 = Not at all Trouble relaxin = Not at all Being so restless that it is hard to sit still: 0 = Not at all Becoming easily annoyed or irritable: 0 = Not at all Feeling afraid as if something awful might happen: 0 = Not at all Total BERTRAM-7 score (0-4 normal; 5-9 mild; 10-14 moderate; 15-21 severe): 0 Source: Developed by Drs. Lief Hale, Evelia Craig, Drew Wright and colleagues, with an educational nato from [employer]. Review of Systems Const Denies chills, Denies fatigue, Denies fever(s), Denies headache(s), Denies malaise and Denies weakness Eyes Denies blurry vision, Denies change in vision, Denies irritation and Denies itchy eyes ENT Denies dysphagia, Denies dizziness, Denies otalgia, Denies headache(s), Denies nasal congestion, Denies neck pain, Denies odynophagia and Denies sore throat Card Denies chest pain, Denies rapid heart rate, Denies irregular heart rhythm, Denies palpitations and Denies dyspnea Resp Denies chest congestion, Denies cough, Denies dyspnea and Denies wheezing GI Denies abdominal pain, Denies bloating, Denies constipation, Denies dysphagia, Denies heartburn, Denies diarrhea, Denies nausea, Denies odynophagia and Denies vomiting Denies hematuria, Denies difficulty urinating, Denies dysuria, Denies urinary frequency and Denies urinary urgency Musc Denies back pain, Denies arthralgias, Denies joint swelling, Denies muscle weakness and Denies neck pain Skin/Breast Denies change in pigmentation, Denies lesions, Denies rash and Denies unusual bruising Neuro Denies dizziness, Denies headache(s), Denies paresthesias and Denies weakness Endo Denies fatigue and Denies palpitations Aller/Immun Denies itchy eyes and Denies wheezing Physical exam (Primary Care) Vital Signs: Last Vital Signs Pulse 85 03/30/24 14:58 BP 126/80 03/30/24 14:58 Pulse Ox 99 03/30/24 14:58 Oxygen Delivery Method Room Air 03/30/24 14:58 BMI result Body Mass Index 23.7 Tobacco/Smoking Status: Tobacco use Status Tobacco use date assessed 03/30/24 03/30/24 14:47 Patient Tobacco Use Status Never used Tobacco 03/30/24 14:47 e-Cigarette/Vaping Use Never Used 03/30/24 14:47 PHQ-9: PHQ-9 Score PHQ-9: Total score 0 03/30/24 15:38 Depression Screening Interpretation: Negative Thrive Assessment: Date of Thrive Assessment Date Thrive assessed 03/30/24 03/30/24 14:47 Currently or been in a relationship where the following occur: No concerns reported Const General: no acute distress, alert and awake Orientation/consciousness: patient oriented x3 HENMT Head: Yes normocephalic and Yes atraumatic Ears: external ears normal, TM's normal bilaterally and EAC's normal General nose exam: No nasal discharge present Face and sinus: Yes normal facial exam and Yes sinuses nontender Teeth and gingiva: dentition normal Throat: Yes posterior oropharynx normal and Yes tonsils normal (no TP congestion) Eyes Eyelids: Yes eyelids normal Conjunctivae: conjunctivae normal Pupils: Equal, round and reactive pupils present EOM: EOMs intact bilaterally Neck Neck: Yes no lymphadenopathy and Yes supple Thyroid: Thyroid normal Resp Auscultation: clear to auscultation bilaterally, no rales and no wheezes Cardio Rate: regular rate Rhythm: regular rhythm Heart sounds: no murmurs GI Palpation (GI): Soft to palpation, nontender and No hepatosplenomegaly present Auscultation: normal bowel sounds General: Yes no CVA tenderness Back/Spine/Pelvis Back: no CVA tenderness Thoracic/Lumbar Spine: thoracic and lumbar spine normal to inspection Skin Lesions: no lesions Rashes: no rashes Neuro General: patient oriented x3, moves all extremities, no focal motor deficits and CN's II-XI intact bilaterally Cranial nerves: Yes Equal, round and reactive pupils present Cognition (Neuro): normal cognition Gait exam (Neuro): Normal gait present Extrem General: Yes no clubbing, cyanosis or edema Office Procedures Flu Questionnaire Does the patient have a severe egg allergy?: No Immunizations Fluarix Triv [id number] (PF) 45 mcg (15 mcg x 3)/0.5 mL IM syringe Performing Provider: Jeancarlos Denton MD [place] [facility] [place] [facility] [place] [facility] Documented (not given) by: STEVE Jensen on 03/30/24 15:04 Reason Not Given: Patient Refused Results Reviewed Results Reviewed: Laboratory Tests 03/20/24 03/20/24 07:49 Unknown WBC 5.9 Hgb 15.7 Hct 45.4 Plt Count 236 Sodium 141 Potassium 4.3 Creatinine 1.06 Estimated GFR > 60 Fasting Glucose 113 H Calcium 9.6 AST 14 ALT 9 Triglycerides 63 Cholesterol 194 LDL Cholesterol, Calc 109 H HDL Cholesterol 73 PSA Screen 0.50 25-OH Vitamin D Total 36.6 TSH 2.41 Ur Specific [place] 1.010 Urine Protein Negative Urine Glucose (UA) Negative Urine Blood Negative Urine Nitrite Negative Ur Leukocyte Esterase Negative Coding Level of Care Code Est Pt Prev Care 40-64y(54529) Diagnoses Annual physical exam Z00.00 Essential hypertension I10 Pure hypercholesterolemia E78.00 Impaired fasting glucose R73.01 Assessment & Plan Assessment & Plan (1) Annual physical exam: Code(s): Z00.00 - Encounter for general adult medical examination without abnormal findings Category: Medical Plan: Results of his labs done last week reviewed and discussed with patient He is up-to-date with his colon cancer screening - had his screening colonoscopy done earlier this year on 08/01/2023 He had a tubular adenoma removed and he was advised to get a repeat colonoscopy in 3 years (2026) for follow-up (2) Essential hypertension: Code(s): I10 - Essential (primary) hypertension Category: Medical Plan: Reinforced low sodium diet - goal is systolic BP of 120 mm or less Continue Lisinopril 2.5 mg QD Patient is reminded to continue monitoring his blood pressure regularly (3) Pure hypercholesterolemia: Code(s): E78.00 - Pure hypercholesterolemia, unspecified Category: Medical Plan: Have advised patient that his LDL and total cholesterol levels have again improved slightly from previous on his recent labs Reinforced low cholesterol diet Will have him recheck his labs and fasting lipids in 6 months for follow up (4) Impaired fasting glucose: Code(s): R73.01 - Impaired fasting glucose Category: Medical Plan: Have advised patient that his fasting glucose level was slightly elevated on his recent labs at 113 mg/dL Reinforce low calories/low carb diet Will recheck his FBS in 6 months for follow-up; will also check his HgbA1c then for further evaluation Plan Follow up in 6 months Orders: Orders Comprehensive [place]. Panel Fast 6 Months E78.00 - Pure hypercholesterolemia, unspecified Influenza [id number] Immunization 03/30/24 Z23 - Encounter for immunization Lipid Panel 6 Months E78.00 - Pure hypercholesterolemia, unspecified Hemoglobin A1c 6 Months R73.9 - Hyperglycemia, unspecified
[2024-03-30 14:58] VITALS: BP 126/80; PULSE 85; O2SAT 99; BMI 23.7
== END 2024-03-30 15:44 | disposition home or self-care (01) ==
PROVIDERS: PCP Internal Medicine; Visit Provider Internal Medicine
DX: Z00.00 Encounter for general adult medical examination without abnormal findings (principal); I10 Essential (primary) hypertension; E78.00 Pure hypercholesterolemia, unspecified; R73.01 Impaired fasting glucose

== ENCOUNTER → 2024-03-30 14:37 | Outpatient (BNVA) | payer OTHER, SELFPAY | PROVIDERS: PCP Internal Medicine; Visit Provider Internal Medicine | DX: Z00.00 Encounter for general adult medical examination without abnormal findings (principal); I10 Essential (primary) hypertension; E78.00 Pure hypercholesterolemia, unspecified; R73.01 Impaired fasting glucose | CPT/HCPCS: 90471; 96127; 99396 ==

== ENCOUNTER 2024-09-20 07:39 | Outpatient (REF) | payer OTHER, SELFPAY ==
[2024-09-20 08:38] LABS: Estimated Average Glucose 94 mg/dL; Hemoglobin A1C 125.5503 umol/L; Hemoglobin A1c % 4.9 % (<6.0); Total Hemoglobin (HGBA1C) 4110.2235 umol/L
[2024-09-20 09:04] LABS: Alanine Aminotransferase 6 U/L (0-40); Albumin Level 4.4 g/dL (3.5-5.0); Alkaline Phosphatase 64 U/L (39-117); Anion Gap 10 (12-20); Aspartate Amino Transferase 18 U/L (5-37); Bilirubin Total 0.7 mg/dL (0.0-1.0); Blood Urea Nitrogen 9 mg/dL (9-16); Calcium 9.3 mg/dL (8.4-10.2); Carbon Dioxide 27 mmol/L (22-29); Chloride 106 mmol/L (96-108); Cholesterol 190 mg/dL (<200); Estimated Glomerular Filt Rate > 60; Glucose Fasting 88 mg/dL (60-99); HDL Cholesterol 58 mg/dL (>40); LDL Cholesterol Calculated 118 mg/dL (<100); Potassium 4.4 mmol/L (3.3-5.1); Sodium 139 mmol/L (135-145); Triglycerides 74 mg/dL (<150)
== END 2024-09-20 07:40 | disposition home or self-care (01) ==
LOC: HO.LAB 07:39
PROVIDERS: PCP Internal Medicine; Visit Provider Internal Medicine
DX: E78.00 Pure hypercholesterolemia, unspecified (principal); R73.9 Hyperglycemia, unspecified
CPT/HCPCS: 36415; 80053; 80061; 83036

== ENCOUNTER 2024-09-28 15:05 | Outpatient (AMB) | payer OTHER, SELFPAY ==
--- NOTE | 2024-09-28 15:12 | A.OFFPC_ITS ---
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 Required: No Accompanied by: Self / Same As Patient Allergies No Known Allergies Allergy (Verified 09/28/24 15:42) Medication List - Last Reconciled 09/28/24 by Jeancarlos Denton MD lisinopril 2.5 mg PO DAILY 90 days Tobacco use date assessed: 09/28/24 Dental Screening Dental Screen Date: 09/28/24 Did you have a dental visit in the last 12 months?: Yes Did you have a dental problem in the last 6 months where you did not have access to dental care?: No Was dental information given to patient?: Patient has dentist HPI 6mth f/u HPI Details Patient comes in today for his follow-up visit States that he feels okay He denies any headaches or dizziness Denies any chest pains, no shortness of breath No nausea/vomiting, no abdominal pain No change in bowel habits noted He had his follow-up labs done last week - to discuss his results [facility] Medical History Pure hypercholesterolemia Essential hypertension Surgical History Hx of colonoscopy Status post myringotomy with tube placement of both ears History of tonsillectomy Family History Father Hypertension Impaired fasting glucose Mother No problems noted. 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 1. Little interest or pleasure in doing things: not at all 2. Feeling down, depressed, or hopeless: not at all 3. Trouble falling or staying asleep, or sleeping too much: not at all 4. Feeling tired or having little energy: not at all 5. Poor appetite or overeating: not at all 6. Feeling bad about yourself - or that you are a failure or have let yourself or your family down: not at all 7. Trouble concentrating on things, such as reading the newspaper or watching television: not at all 8. Moving or speaking so slowly that other people could have noticed. Or the opposite - being so fidgety or restless that you have been moving around a lot more than usual: not at all 9. Thoughts that you would be better off or of hurting yourself in some way: not at all Total score: 0 Depression Screening Interpretation: Negative Depression Screening Done: Yes 91071 - PHQ-9 Billing: Yes Source: Developed by Drs. Leif Hale, Evelia Craig, Drew Wright and colleagues, with an educational nato from [employer]. Thrive Questionnaire Date Thrive assessed: 09/28/24 I am a: Patient What is your living situation today?: I have a steady place to live Within the past 12 months, did the food you bought not last and you didn't have the money to get more?: Never true Within the past 12 months, did you worry whether your food would run out before you got money to buy more?: Never true Do you have trouble paying for medicines?: No Do you have trouble getting transportation to medical appointments?: No Do you have trouble paying your heating and electricity bill?: No Do you have trouble taking care of your child, family member or friend?: No Do you have trouble with day-to-day activities such as bathing, preparing meals, shopping, managing finances, etc.?: No Are you currently unemployed and looking for a job?: No Are you interested in more education?: No Please select the resources that you would like help with: None Currently or been in a relationship where the following occur: No concerns reported THRIVE Score: 0 AUDIT C Alcohol Use Questionnaire (AUDIT-C) 1. How often do you have a drink containing alcohol?: 4 or more times a week 2. How many drinks containing alcohol do you have on a typical day when you are drinking?: 3 or 4 3. How often do you have six or more drinks on one occasion?: Never Total Score: 5 Score Reviewed/Action Taken: Yes BERTRAM-7 AMB Questionnaire BERTRAM-7 Date BERTRAM - 7 assessed: 09/28/24 Feeling nervous, anxious, or on edge: 0 = Not at all Not being able to stop or control worryin = Not at all Worrying too much about different things: 0 = Not at all Trouble relaxin = Not at all Being so restless that it is hard to sit still: 0 = Not at all Becoming easily annoyed or irritable: 0 = Not at all Feeling afraid as if something awful might happen: 0 = Not at all Total BERTRAM-7 score (0-4 normal; 5-9 mild; 10-14 moderate; 15-21 severe): 0 Source: Developed by Drs. Leif Hale, Evelia Craig, Drew Wright and colleagues, with an educational nato from [employer]. BERTRAM-7 Assessment Billing BERTRAM-7 Assessment Tool: BERTRAM-7 Assessment 57519 Review of Systems Const Denies chills, Denies fatigue, Denies fever(s) and Denies headache(s) ENT Denies dysphagia, Denies dizziness, Denies otalgia, Denies headache(s), Denies neck pain, Denies odynophagia and Denies sore throat Card Denies chest pain, Denies irregular heart rhythm, Denies palpitations and Denies dyspnea Resp Denies chest congestion, Denies cough and Denies dyspnea GI Denies abdominal pain, Denies constipation, Denies dysphagia, Denies heartburn, Denies diarrhea, Denies nausea, Denies odynophagia and Denies vomiting Denies difficulty urinating, Denies dysuria and Denies urinary frequency Musc Denies back pain, Denies arthralgias and Denies neck pain Skin/Breast Denies rash Neuro Denies dizziness, Denies headache(s) and Denies paresthesias Endo Denies fatigue and Denies palpitations Physical exam (Primary Care) Vital Signs: Last Vital Signs Pulse 91 09/28/24 15:26 BP 128/70 09/28/24 15:26 Pulse Ox 98 09/28/24 15:26 Oxygen Delivery Method Room Air 09/28/24 15:26 BMI result Body Mass Index 24.2 Tobacco/Smoking Status: Tobacco use Status Tobacco use date assessed 09/28/24 09/28/24 15:27 Patient Tobacco Use Status Never used Tobacco 09/28/24 15:12 e-Cigarette/Vaping Use Never Used 09/28/24 15:12 PHQ-9: PHQ-9 Score PHQ-9: Total score 0 09/28/24 15:44 Depression Screening Interpretation: Negative Thrive Assessment: Date of Thrive Assessment Date Thrive assessed 09/28/24 09/28/24 15:12 Currently or been in a relationship where the following occur: No concerns reported Const General: no acute distress and alert HENMT Ears: TM's normal bilaterally and EAC's normal Throat: Yes posterior oropharynx normal and Yes tonsils normal (no TP congestion) Neck Neck: Yes supple and No lymphadenopathy Thyroid: Thyroid normal Resp Auscultation: clear to auscultation bilaterally, no rales and no wheezes Cardio Rate: regular rate Rhythm: regular rhythm Heart sounds: no murmurs GI Palpation (GI): Soft to palpation and nontender Auscultation: normal bowel sounds General: Yes no CVA tenderness Back/Spine/Pelvis Back: no CVA tenderness Thoracic/Lumbar Spine: No lumbar spinal tenderness Skin Rashes: no rashes Extrem General: Yes no clubbing, cyanosis or edema Results Reviewed Results Reviewed: Laboratory Tests 09/20/24 07:47 Sodium 139 Potassium 4.4 Creatinine 0.94 Estimated GFR > 60 Fasting Glucose 88 Hemoglobin A1c % 4.9 Calcium 9.3 AST 18 ALT 6 Triglycerides 74 Cholesterol 190 LDL Cholesterol, Calc 118 H HDL Cholesterol 58 Coding Level of Care Code Est Pt Level 3 (79884) Diagnoses Essential hypertension I10 Pure hypercholesterolemia E78.00 Impaired fasting glucose R73.01 Additional Codes BERTRAM-7 Assessment Billing - BERTRAM-7 Assessment Tool: BERTRAM-7 Assessment 86994 ([id number]) PHQ-9 - 89731 - PHQ-9 Billing: Yes ([id number]) Assessment & Plan Assessment & Plan (1) Essential hypertension: Code(s): I10 - Essential (primary) hypertension Category: Medical Plan: Reinforced low sodium diet - goal is systolic BP of 120 mm or less His blood pressure remains adequately controlled on his current medication Continue Lisinopril 2.5 mg QD Patient is reminded to continue monitoring his blood pressure regularly (2) Pure hypercholesterolemia: Code(s): E78.00 - Pure hypercholesterolemia, unspecified Category: Medical Plan: Results of his labs done last week reviewed and discussed with patient - he is advised that his cholesterol levels have increased slightly from previous Reinforced low cholesterol diet Will have him recheck his labs and fasting lipids in 6 months for follow up (3) Impaired fasting glucose: Code(s): R73.01 - Impaired fasting glucose Category: Medical Plan: His fasting glucose level was normal at 88 mg/dL on his recent labs; HgbA1c was normal at 4.9% Reinforce low calories/low carb diet Plan To return as scheduled March 2025 for his next annual physical examination Orders: Orders Complete Blood Count Auto Diff 03/20/25 D64.9 - Anemia, unspecified, Z00. - Encounter for general adult medical examination without abnormal findings Comprehensive [place]. Panel Fast 03/20/25 E78.00 - Pure hypercholesterolemia, unspecified, Z00. - Encounter for general adult medical examination without abnormal findings Lipid Panel 03/20/25 E78.00 - Pure hypercholesterolemia, unspecified, Z00.00 - Encounter for general adult medical examination without abnormal findings Hemoglobin A1c 03/20/25 E11.9 - Type 2 diabetes mellitus without complications, Z00.00 - Encounter for general adult medical examination without abnormal findings TSH reflex Free T4 03/20/25 E78.00 - Pure hypercholesterolemia, unspecified, Z00.00 - Encounter for general adult medical examination without abnormal findings UA CC w/rflx Micro + Cult 03/20/25 R30.0 - Dysuria, Z00.00 - Encounter for general adult medical examination without abnormal findings Vitamin D 25-OH Total 03/20/25 E55.9 - Vitamin D deficiency, unspecified, Z00.00 - Encounter for general adult medical examination without abnormal findings Prostate Specific Antigen Scr 03/20/25 Z00.00 - Encounter for general adult medical examination without abnormal findings
[2024-09-28 15:26] VITALS: BP 128/70; PULSE 91; O2SAT 98; BMI 24.2
== END 2024-09-28 15:46 | disposition home or self-care (01) ==
LOC: HO.HMCH 15:06
PROVIDERS: PCP Internal Medicine; Visit Provider Internal Medicine
DX: I10 Essential (primary) hypertension (principal); E78.00 Pure hypercholesterolemia, unspecified; R73.01 Impaired fasting glucose

== ENCOUNTER → 2024-09-28 15:05 | Outpatient (BNVA) | payer OTHER, SELFPAY | PROVIDERS: PCP Internal Medicine; Visit Provider Internal Medicine | DX: I10 Essential (primary) hypertension (principal); E78.00 Pure hypercholesterolemia, unspecified; R73.01 Impaired fasting glucose | CPT/HCPCS: 96127; 99212 ==

== ENCOUNTER 2024-10-12 08:55 | Outpatient (AMB) | payer OTHER, SELFPAY ==
[2024-10-12 09:11] VITALS: BP 126/72; PULSE 80; RESP 16; TEMP 37.5; O2SAT 98; BMI 23.9
--- NOTE | 2024-10-12 09:11 | MHC.PC.OV ---
Vital Signs 10/12/24 09:11 Height 5 ft 8.5 in Weight 159 lb 9.6 oz BMI 23.9 BP 126/72 Blood Pressure Location Lt brachial Position Sitting Respiration 16 Pulse 80 Pulse Source Pulse Oximeter Temp 99.5 F Temp Source Oral Pulse Oximetry (%) 98 Oxygen Delivery Method Room Air Intake Visit Reasons: [facility] 10/08 Chest Pain Intake Note: Patient is here to follow-up after a visit the emergency department at [facility] in [place], [place] on 10/08/2024. Belt Maker Required: No Accompanied by: Self / Same As Patient Allergies No Known Allergies Allergy (Verified 10/12/24 09:42) Medication List - Last Reconciled 10/12/24 by MICHAEL Perez lisinopril 2.5 mg PO DAILY 90 days Tobacco use date assessed: 10/12/24 Dental Screening Dental Screen Date: 10/12/24 Did you have a dental visit in the last 12 months?: Yes Did you have a dental problem in the last 6 months where you did not have access to dental care?: No Was dental information given to patient?: Patient has dentist HPI [facility] 10/08 Chest Pain HPI Details Presenting for [facility] ER follow up with complaints of chest pain: The patient is a 54-year-old male presenting with chest discomfort and associated symptoms. He reports an episode occurring recently while he was driving, during which he experienced an odd sensation that began on the right side of his chest and spread across his body. He described a sensation in his head as weird, with awareness of his heartbeat noted in his eyes, but he did not experience loss of consciousness or focal weakness. The discomfort moved from his upper chest down centrally, lasting approximately 20-30 seconds. 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 Hydration appears adequate with five to six bottles of water daily and one cup of coffee each morning. The patient has a history of lisinopril use for hypertension, which he suspects may cause a cough, particularly after consuming water. No recent illness or heartburn is reported, and no unusual stress was noted at the time of the event. [facility] Medical History Pure hypercholesterolemia Essential hypertension Surgical History Hx of colonoscopy Status post myringotomy with tube placement of both ears History of tonsillectomy Family History Father Hypertension Impaired fasting glucose Mother No problems noted. 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 Cognitive needs: No Hearing needs: No Vision needs: Yes (Reading glasses) Questionnaire Thrive Questionnaire Date Thrive assessed: 10/12/24 I am a: Patient What is your living situation today?: I have a steady place to live Within the past 12 months, did the food you bought not last and you didn't have the money to get more?: Never true Within the past 12 months, did you worry whether your food would run out before you got money to buy more?: Never true Do you have trouble paying for medicines?: No Do you have trouble getting transportation to medical appointments?: No Do you have trouble paying your heating and electricity bill?: No Do you have trouble taking care of your child, family member or friend?: No Do you have trouble with day-to-day activities such as bathing, preparing meals, shopping, managing finances, etc.?: No Are you currently unemployed and looking for a job?: No Are you interested in more education?: No Please select the resources that you would like help with: None Currently or been in a relationship where the following occur: No concerns reported THRIVE Score: 0 AUDIT C Alcohol Use Questionnaire (AUDIT-C) 1. How often do you have a drink containing alcohol?: 4 or more times a week 2. How many drinks containing alcohol do you have on a typical day when you are drinking?: 3 or 4 3. How often do you have six or more drinks on one occasion?: Monthly (Weekends) Total Score: 7 Score Reviewed/Action Taken: Yes BERTRAM-7 AMB Questionnaire BERTRAM-7 Date BERTRAM - 7 assessed: 09/28/24 Source: Developed by Drs. Leif Hale, Evelia Craig, Drew Wright and colleagues, with an educational nato from [employer]. Review of Systems Const Details: - Cardiovascular: Reports chest discomfort, dizziness, and awareness of heartbeat in eyes; denies shortness of breath. - Neurological: Reports episodes of dizziness and lightheadedness when standing; denies loss of consciousness. - Respiratory: Reports daily cough, which seems aggravated after drinking water; denies recent illness or heartburn. Denies headache(s) Eyes Denies loss of vision ENT Denies vertigo, Reports dizziness, Denies headache(s) and Denies sore throat Card Reports chest pain (short-lived during his brief), Reports rapid heart rate (reports feeling her heartbeats ), Denies leg edema and Reports lightheadedness Resp Reports cough, Denies hemoptysis and Denies wheezing GI Denies abdominal pain, Denies melena, Denies constipation, Denies diarrhea and Denies vomiting Denies dysuria, Denies urinary frequency and Denies urinary urgency Neuro Denies Abnormal speech present, Denies vertigo, Reports dizziness, Denies headache(s) and Denies loss of vision Rl/Lymph Denies easy bleeding and Denies easy bruising Aller/Immun Denies wheezing Physical exam (Primary Care) Vital Signs: Last Vital Signs Temp 99.5 F 10/12/24 09:11 Pulse 80 10/12/24 09:11 Resp 16 10/12/24 09:11 BP 126/72 10/12/24 09:11 Pulse Ox 98 10/12/24 09:11 Oxygen Delivery Method Room Air 10/12/24 09:11 BMI result Body Mass Index 23.9 Tobacco/Smoking Status: Tobacco use Status Tobacco use date assessed 10/12/24 10/12/24 09:20 Patient Tobacco Use Status Never used Tobacco 10/12/24 09:20 e-Cigarette/Vaping Use Never Used 10/12/24 09:20 Thrive Assessment: Date of Thrive Assessment Date Thrive assessed 10/12/24 10/12/24 09:20 Currently or been in a relationship where the following occur: No concerns reported Const General: healthy appearing, no acute distress, alert and awake Nutritional Appearance: well nourished Orientation/consciousness: oriented to person, oriented to place and oriented to time HENMT Ears: TM's normal bilaterally General nose exam: Normal nasal mucous membranes and turbinates present Eyes Conjunctivae: conjunctivae normal Sclerae: sclerae normal Pupils: Equal, round and reactive pupils present Neck Neck: Yes no lymphadenopathy and Yes no JVD Thyroid: Thyroid normal Carotids: no bruits Resp Effort & Inspection: normal respiratory effort and not tachypneic Auscultation: no crackles, no rales, no rhonchi and no wheezes Cardio Rate: regular rate Rhythm: regular rhythm Heart sounds: no murmurs and normal S1 and S2 GI Palpation (GI): Soft to palpation, nontender, no hepatomegaly and no splenomegaly Auscultation: normal bowel sounds Neuro General: oriented to person, oriented to place and oriented to time Cranial nerves: Yes Equal, round and reactive pupils present Speech: No Abnormal speech present Gait exam (Neuro): Normal gait present Motor exam (neuro): no tremor noted Extrem Right upper extremity: full ROM Left upper extremity: full ROM Right lower extremity: full ROM; no edema Left lower extremity: full ROM; no edema Psych Mental Status: mental status grossly normal Speech and movement: Normal speech and movement present Affect: normal affect Attitude: cooperative Thought process: Normal thought process present Results Reviewed Results Reviewed: Laboratory Tests 09/20/24 07:47 Sodium 139 Potassium 4.4 Chloride 106 Carbon Dioxide 27 Anion Gap 10 L BUN 9 Creatinine 0.94 Estimated GFR > 60 Fasting Glucose 88 Estimat Average Glucose 94 Hemoglobin A1c % 4.9 Calcium 9.3 Total Bilirubin 0.7 AST 18 ALT 6 Alkaline Phosphatase 64 Total Protein 7.0 Albumin 4.4 Triglycerides 74 Cholesterol 190 LDL Cholesterol, Calc 118 H HDL Cholesterol 58 Coding Level of Care Code Est Pt Level 3 (48321) Diagnoses Heart palpitations R00.2 Abnormal sensation of thorax R09.89 Dizziness R42 Lightheadedness R42 Time Spent (min) 36 Assessment & Plan Assessment & Plan (1) Heart palpitations: Code(s): R00.2 - Palpitations Category: Medical (2) Abnormal sensation of thorax: Code(s): R09.89 - Other specified symptoms and signs involving the circulatory and respiratory systems Category: Medical (3) Dizziness: Code(s): R42 - Dizziness and giddiness Category: Medical (4) Lightheadedness: Code(s): R42 - Dizziness and giddiness Category: Medical Plan I discussed with the patient the detailed plan addressing the events and symptoms he reported. A heart monitor is planned to assess his cardiac rhythm and correlate any symptomatic episodes, given the description of the unusual sensation and awareness of heartbeat. This monitoring is crucial due to normal initial evaluations but persisting concerns that require elimination of transient cardiac causes. His existing lisinopril therapy, associated with a persistent cough, is recognized for potential adjustment based on effect observation, particularly considering its relationship with water intake, while continuing to control hypertension. I advised against rapid positional changes in response to reported dizziness and lightheadedness. The importance of maintaining follow-up with Dr. Denton was emphasized for a comprehensive assessment and care plan, depending on further testing results and ongoing symptoms. Patient was informed and verbally consented to the use of an ambient scribe for clinic note documentation during this visit. Orders: Orders ECG 7 day holter monitor 10/12/24 R00.2 - Palpitations, R09.89 - Other specified symptoms and signs involving the circulatory and respiratory systems Patient Instructions: - Wear the heart monitor as directed, and go about your normal activities. - Keep the appointment with Dr. Bryan to review heart monitor results. - Monitor the cough, especially after drinking water, and report any changes. - Avoid abrupt changes in position, especially when working under cars, to reduce dizziness. - Report any recurrence of chest discomfort or unusual sensations immediately.
== END 2024-10-12 10:00 | disposition home or self-care (01) ==
LOC: HO.HMCH 08:56
PROVIDERS: PCP Internal Medicine
DX: R00.2 Palpitations (principal); R09.89 Other specified symptoms and signs involving the circulatory and respiratory systems; R42 Dizziness and giddiness

== ENCOUNTER → 2024-10-12 08:55 | Outpatient (BNVA) | payer OTHER, SELFPAY | PROVIDERS: PCP Internal Medicine | DX: R00.2 Palpitations (principal); R09.89 Other specified symptoms and signs involving the circulatory and respiratory systems; R42 Dizziness and giddiness | CPT/HCPCS: 99212 ==

== ENCOUNTER → 2024-10-19 08:36 | Outpatient (REF) | payer OTHER, SELFPAY | LOC: HO.CARD 08:36 | PROVIDERS: PCP Internal Medicine | DX: R00.2 Palpitations (principal); R09.89 Other specified symptoms and signs involving the circulatory and respiratory systems | CPT/HCPCS: 93242 ==

== ENCOUNTER → 2024-10-19 08:38 | Outpatient (BNV) | payer OTHER, SELFPAY | PROVIDERS: PCP Internal Medicine; Visit Provider Internal Medicine Cardiovascular Disease | DX: R00.0 Tachycardia, unspecified (principal) | CPT/HCPCS: 93244 ==

== ENCOUNTER 2025-03-25 07:48 | Outpatient (REF) | payer OTHER, SELFPAY ==
--- OUTSIDE RECORDS SUMMARY | 2025-03-25 07:51 | XMS_ITS | Clinical Summary ---
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 30 capsule 1 Active Additional Information Patient not taking.Reported on 10/26/2023 lisinopril (PRINIVIL,ZESTR MI) 2.5 MG tablet Take 1 tablet by mouth every morning. 4 Active Active Problems No known active problems Immunizations No known immunizations Social History Tobacco Use Types Packs/Day Years Used Date Smoking Tobacco: Never Assessed Education Answer Date Recorded Are you interested in more education? Not on katelyn e 10/15/2022 Are you concerned about learning? Not on file 10/15/2022 No 10/15/2022 No 10/15/2022 Digital Access Answer Date Recorded No 11/13/2022 No 11/13/2022 Reliable internet access at home? Not on file 11/13/2022 Device with a working camera? Not on file Intimate Partner Violence Answer Date R ecorded Are you denied basic needs s uch as food, clothing, or medical care? No 10/08/2024 In the past 12 months have y ou been in a relationship with a person who hurts, threatens, or tries to control you? No 10/08/2024 Are you denied basic needs s uch as food, clothing, or medical care? No 10/08/2024 In the past 12 months have y ou been in a relationship with a person who hurts, threatens, or tries to control you? No 10/08/2024 Sex and Gender Information Value Date Recorded Sex Assigned at Male 10/08/2024 9:28 AM EDT Legal Sex Male 9:35 PM EDT Gender Identity Male 10/08/2024 9:28 AM EDT Sexual Orientation Not on file Last Filed Vital Signs Vital Sign Reading Time Taken Comments Blood Pressure 160/90 10/08/2024 11:19 AM EDT Pulse 81 10/08/2024 11:19 AM EDT Temperature 36.7 C (98 F) 10/08/2024 11:19 AM EDT Respiratory Rate 16 10/08/2024 11:19 AM EDT Oxygen Saturation 100% 10/08/2024 11:19 AM EDT Inhaled Oxygen Concentration - - Weight 74.8 kg (165 lb) 10/08/2024 9:27 AM EDT Height 177.8 cm (5' 10 ) 10/08/2024 9:27 AM EDT Body Mass Index 23.68 10/08/2024 9:27 AM EDT Plan of Treatment Health Maintenance Due Date Last Done Comments Adult Td,Tdap Booster 1970 LIPID PANEL 1970 DEPRESSION SCREENING 1982 SMOKING Hx and SMOKELESS TOBACCO SCREENING 1983 HEPATITIS C SCREENING 01/30/1988 HIV ONE-TIME SCREENING (18-6 5 YEARS) 01/30/1988 COLOGUARD 2015 COLONOSCOPY 2015 COLORECTAL CANCER SCREENING 2015 FIT TEST 2015 FOBT 2015 SIGMOIDOSCOPY 2015 VIRTUAL COLONOSCOPY 2015 PNEUMOCOCCAL VACCINES (50+ years) (1 of 1 - PCV) 01/30/2020 ZOSTER VACCINES (1 of 2) 01/30/2020 INFLUENZA VACCINE (#1) 2025 COVID-19 VACCINE (3 - 2024-2 6 season) 2025 02/12/2021, 01/15/2021 CREATININE LEVEL 10/08/2025 10/08/2024, 11/28/2020 POTASSIUM LEVEL 10/08/2025 10/08/2024, 11/28/2020 HEPATITIS A VACCINES Aged Out No long er eligible based on patient's age to complete this topic HIB VACCINES Aged Out No longer eligi ble based on patient's age to complete this topic MENINGOCOCCAL VACCINES (ACWY) Aged Out No longer eligible based on patient's age to complete this topic MENINGOCOCCAL VACCINES (B) Aged Out N o longer eligible based on patient's age to complete this topic Medical Devices Not on file Procedures Procedure Name Priority Date/Time Associated Diagnosis Comments BASIC METABOLIC PANEL STAT 10/08/2024 9:43 AM EDT from Last 3 Months or Most Recently Relevant to Health Maintenance Results * (ABNORMAL) Basic metabolic panel (10/08/2024 9:43 AM EDT) SODIUM 138 133 - 146 mmol/L [facility] CHLORIDE 99 96 - 108 mmol/L [facility] POTASSIUM 5.0 3.3 - 5.1 mmol/L [facility] CO2 29 21 - 35 mmol/L [facility] BUN 14 6 - 19 mg/dL [facility] CREATININE 1.00 0.5 - 1.5 mg/dL [facility] GLUCOSE 113(H) 70 - 99 mg/dL [facility] CALCIUM 9.7 8.4 - 10.3 mg/dL [facility] EGFR 89 >59 mL/min/1.7 3m2 [facility] Comment:Estimated glomerular filtration rate calculated using the CKD-EPI refit equation. ANION GAP 15 10 - 20 mmol/L [facility] Blood 10/08/2024 9:43 AM EDT 10/08/2024 9:48 AM EDT us Gadiel Gong MD LAB BLOOD ORDERABLES Final Resu lt [facility] [address] [place], [place] [id number] from Last 3 Months or Most Recently Relevant to Health Maintenance Insurance [employer] [address] [place] [address] [address] [employer] Care Teams Scouring Train Operator Chief Relationship Specialty Start Date End Date Jeancarlos Denton MD [address] [place] [address] [place] [address] PCP - General Internal Medicine 10/08/24 Additional Source Comments The information contained in this document represents components of the legal health record. It is not the complete legal health record.[facility]
[2025-03-25 08:01] LABS: MANUAL DIFF FLAG NO
[2025-03-25 08:22] LABS: Hematocrit 44.4 % (42.0-52.0); Hemoglobin 15.5 g/dl (14.0-18.0); Imm Gran Abs Auto 0.02 X10*3/uL (0.00-0.03); Imm Gran Pct Auto 0.4 % (0.0-0.4); Lymphocytes Absolute Auto 1.9 X10*3/uL (1.2-4.9); Mean Corpuscular HGB Conc 34.9 g/dl (31.0-36.0); Mean Corpuscular Hemoglobin 32.3 pg (27.0-33.0); Mean Corpuscular Volume 92.5 fL (80.0-98.0); NRBC Abs Auto 0.000 X10*3/uL (0.0-0.012); NRBC Pct Auto 0.0 /100WBC (0.0-0.2); Platelet Count 224 X10*3/uL (160-400); Red Blood Count 4.80 X10*6/uL (4.60-5.80); White Blood Count 5.3 X10*3/uL (4.8-10.8)
[2025-03-25 08:37] LABS: Appearance Urine Clear; Glucose Urine UA Negative (Negative); PH 5.5 (5.0-9.0); Specific Gravity - Urine 1.020 (1.005-1.025)
[2025-03-25 08:53] LABS: Alanine Aminotransferase 12 U/L (0-40); Albumin Level 4.7 g/dL (3.5-5.0); Alkaline Phosphatase 62 U/L (39-117); Anion Gap 14 (12-20); Aspartate Amino Transferase 21 U/L (5-37); Blood Urea Nitrogen 15 mg/dL (9-16); Calcium 9.2 mg/dL (8.4-10.2); Carbon Dioxide 28 mmol/L (22-29); Chloride 102 mmol/L (96-108); Cholesterol 202 mg/dL (<200); Estimated Glomerular Filt Rate > 60; HDL Cholesterol 68 mg/dL (>40); Potassium 4.5 mmol/L (3.3-5.1); Sodium 139 mmol/L (135-145); Total Protein 7.0 g/dL (6.5-8.0); Triglycerides 61 mg/dL (<150)
== END 2025-03-25 07:49 | disposition home or self-care (01) ==
LOC: HO.LAB 07:48
PROVIDERS: PCP Internal Medicine; Visit Provider Internal Medicine
DX: Z00.00 Encounter for general adult medical examination without abnormal findings (principal); E78.00 Pure hypercholesterolemia, unspecified; E11.9 Type 2 diabetes mellitus without complications; R30.0 Dysuria; D64.9 Anemia, unspecified; E55.9 Vitamin D deficiency, unspecified
CPT/HCPCS: 36415; 80053; 80061; 81003; 82306; 83036; 84153; 84443; 85025

== ENCOUNTER 2025-04-01 15:49 | Outpatient (AMB) | payer OTHER, SELFPAY ==
--- OUTSIDE RECORDS SUMMARY | 2025-04-01 15:52 | XMS_ITS | Clinical Summary ---
Author Organization [facility] Address [address] [place] [id number] Phone Care Team Providers Care Shade Maker Name Role Phone Jeancarlos Denton MD Primary Care Provider [phone] Allergies No known active allergies Medications indomethacin (INDOCIN) 50 MG capsule Take 1 capsule (50 mg total) by mouth 3 (three) times a day with meals. 30 capsule 1 Active Additional Information Patient not taking.Reported on 10/26/2023 lisinopril (PRINIVIL,ZESTR PR) 2.5 MG tablet Take 1 tablet by [...] 10/08/2024, 11/28/2020 POTASSIUM LEVEL 10/08/2025 10/08/2024, 11/28/2020 RSV VACCINE (1 - 1-dose 75+ series) 2045 HEPATITIS A VACCINES Aged Out No long [...] EDT) SODIUM 138 133 - 146 mmol/L [facility] CHLORIDE 99 96 - 108 mmol/L [facility] POTASSIUM 5.0 3.3 - 5.1 mmol/L [facility] CO2 29 21 - 35 mmol/L [facility] BUN 14 6 - 19 mg/dL [facility] CREATININE 1.00 0.5 - 1.5 mg/dL [facility] GLUCOSE 113(H) 70 - 99 mg/dL [facility] CALCIUM 9.7 8.4 - 10.3 mg/dL [facility] EGFR 89 >59 mL/min/1.7 3m2 [facility] Comment:Estimated glomerular filtration rate calculated using the CKD-EPI refit equation. ANION GAP 15 10 - 20 mmol/L [facility] Blood 10/08/2024 9:43 AM EDT 10/08/2024 9:48 AM EDT us Gadiel Gong MD LAB BLOOD ORDERABLES Final Resu lt [facility] [address] [place] [address] from Last 3 Months or Most Recently Relevant to Health Maintenance [place] [address] [place] [address] [place] [address] [place] [address] [place] [address] [employer] [facility] [employer] DIRECT [facility] [employer] DIRECT Care Teams Shade Maker Relationship Specialty Start Date End Date Jeancarlos Denton MD [address] [place] [address] [place] [address] PCP - General Internal Medicine 10/08/24 Additional Source Comments The information contained in this document represents components of the legal health record. It is not the complete legal health record.[facility]
--- NOTE | 2025-04-01 16:02 | MHC.PC.OV ---
Vital Signs 04/01/25 16:03 Height 5 ft 8.5 in Weight 161 lb 2 oz BMI 24.1 BP 132/80 Blood Pressure Location Lt brachial Position Sitting Pulse 94 Pulse Source Pulse Oximeter Pulse Oximetry (%) 97 Oxygen Delivery Method Room Air Intake Visit Reasons: Annual Exam Screed Person Required: No Accompanied by: Self / Same As Patient Allergies No Known Allergies Allergy (Verified 04/01/25 16:42) Medication List - Last Reconciled 04/01/25 by Jeancarlos Denton MD lisinopril 2.5 mg PO DAILY 90 days Tobacco use date assessed: 04/01/25 Dental Screening Dental Screen Date: 04/01/25 Did you have a dental visit in the last 12 months?: Yes Did you have a dental problem in the last 6 months where you did not have access to dental care?: No Was dental information given to patient?: Patient has dentist HPI Annual Exam HPI Details Patient comes in today for his annual physical examination States that he has been experiencing some pressure-like sensation and discomfort in his left ear for the past couple of months and notes that he is not able to hear out of his left ear lately Thinks that his left ear was also draining slightly about a week ago but has not done so since He denies any headaches or dizziness; denies any fever or sore throat Denies any chest pains, no SOB No nausea/vomiting, no abdominal pain No change in bowel habits noted He denies any acute urinary symptoms He had his follow up labs done last week - to discuss his results He had his screening colonoscopy last done with Dr. Gonzalez last year on 08/01/2023 and he will be due for repeat colonoscopy in 3 years (2026) [facility] Medical History (Updated 04/08/25 @ 01:34 by Jeancarlos Denton MD) Vitamin D deficiency Pure hypercholesterolemia Essential hypertension Surgical History Hx of colonoscopy Status post myringotomy with tube placement of both ears History of tonsillectomy Family History Father Hypertension Impaired fasting glucose Mother No problems noted. 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 1. Little interest or pleasure in doing things: not at all 2. Feeling down, depressed, or hopeless: not at all 3. Trouble falling or staying asleep, or sleeping too much: not at all 4. Feeling tired or having little energy: not at all 5. Poor appetite or overeating: not at all 6. Feeling bad about yourself - or that you are a failure or have let yourself or your family down: not at all 7. Trouble concentrating on things, such as reading the newspaper or watching television: not at all 8. Moving or speaking so slowly that other people could have noticed. Or the opposite - being so fidgety or restless that you have been moving around a lot more than usual: not at all 9. Thoughts that you would be better off or of hurting yourself in some way: not at all Total score: 0 Depression Screening Interpretation: Negative Depression Screening Done: Yes 20921 - PHQ-9 Billing: Yes Source: Developed by Drs. Leif Hale, Evelia Craig, Drew Wright and colleagues, with an educational nato from [employer]. Thrive Questionnaire Date Thrive assessed: 04/01/25 I am a: Patient What is your living situation today?: I have a steady place to live Within the past 12 months, did the food you bought not last and you didn't have the money to get more?: Often true Within the past 12 months, did you worry whether your food would run out before you got money to buy more?: Never true Do you have trouble paying for medicines?: No Do you have trouble getting transportation to medical appointments?: No Do you have trouble paying your heating and electricity bill?: No Do you have trouble taking care of your child, family member or friend?: No Do you have trouble with day-to-day activities such as bathing, preparing meals, shopping, managing finances, etc.?: No Are you currently unemployed and looking for a job?: No Are you interested in more education?: No Please select the resources that you would like help with: None Currently or been in a relationship where the following occur: No concerns reported THRIVE Score: 1 AUDIT C Alcohol Use Questionnaire (AUDIT-C) 1. How often do you have a drink containing alcohol?: 2-3 times a week 2. How many drinks containing alcohol do you have on a typical day when you are drinking?: 3 or 4 3. How often do you have six or more drinks on one occasion?: Less than monthly Total Score: 5 Score Reviewed/Action Taken: Yes BERTRAM-7 AMB Questionnaire BERTRAM-7 Date BERTRAM - 7 assessed: 09/28/24 Feeling nervous, anxious, or on edge: 0 = Not at all Not being able to stop or control worryin = Not at all Worrying too much about different things: 0 = Not at all Trouble relaxin = Not at all Being so restless that it is hard to sit still: 0 = Not at all Becoming easily annoyed or irritable: 0 = Not at all Feeling afraid as if something awful might happen: 0 = Not at all Total BERTRAM-7 score (0-4 normal; 5-9 mild; 10-14 moderate; 15-21 severe): 0 Source: Developed by Drs. Leif Hlae, Evelia Craig, Drew Wright and colleagues, with an educational nato from [employer]. Review of Systems Const Denies chills, Denies fatigue, Denies fever(s), Denies headache(s), Denies malaise and Denies weakness Eyes Denies blurry vision, Denies change in vision, Denies irritation and Denies itchy eyes ENT Denies dysphagia, Denies dizziness, Reports ear discharge (from the left ear), Denies otalgia (but (+) left ear pressure and discomfort), Denies headache(s), Denies nasal congestion, Denies neck pain, Denies odynophagia and Denies sore throat Card Denies chest pain, Denies rapid heart rate, Denies irregular heart rhythm, Denies palpitations and Denies dyspnea Resp Denies chest congestion, Denies cough, Denies dyspnea and Denies wheezing GI Denies abdominal pain, Denies bloating, Denies constipation, Denies dysphagia, Denies heartburn, Denies diarrhea, Denies nausea, Denies odynophagia and Denies vomiting Denies hematuria, Denies difficulty urinating, Denies dysuria, Denies urinary frequency and Denies urinary urgency Musc Denies back pain, Denies arthralgias, Denies joint swelling, Denies muscle weakness and Denies neck pain Skin/Breast Denies change in pigmentation, Denies lesions, Denies rash and Denies unusual bruising Neuro Denies dizziness, Denies headache(s), Denies paresthesias and Denies weakness Endo Denies fatigue and Denies palpitations Aller/Immun Denies itchy eyes and Denies wheezing Physical exam (Primary Care) Vital Signs: Last Vital Signs Pulse 94 04/01/25 16:03 BP 132/80 04/01/25 16:03 Pulse Ox 97 04/01/25 16:03 Oxygen Delivery Method Room Air 04/01/25 16:03 BMI result Body Mass Index 24.1 Tobacco/Smoking Status: Tobacco use Status Tobacco use date assessed 04/01/25 04/01/25 16:07 Patient Tobacco Use Status Never used Tobacco 04/01/25 16:07 e-Cigarette/Vaping Use Never Used 04/01/25 16:07 PHQ-9: PHQ-9 Score PHQ-9: Total score 0 04/01/25 16:56 Depression Screening Interpretation: Negative Thrive Assessment: Date of Thrive Assessment Date Thrive assessed 04/01/25 04/01/25 16:56 Currently or been in a relationship where the following occur: No concerns reported Const General: no acute distress, alert and awake Orientation/consciousness: patient oriented x3 HENMT Head: Yes normocephalic and Yes atraumatic Ears: external ears normal, TM's normal bilaterally, EAC's normal (right ear) and Abnormal EAC present otic discharge clear on the left General nose exam: No nasal discharge present Face and sinus: Yes normal facial exam and Yes sinuses nontender Teeth and gingiva: dentition normal Throat: Yes posterior oropharynx normal and Yes tonsils normal (no TP congestion) Eyes Eyelids: Yes eyelids normal Conjunctivae: conjunctivae normal Pupils: Equal, round and reactive pupils present EOM: EOMs intact bilaterally Neck Neck: Yes no lymphadenopathy and Yes supple Thyroid: Thyroid normal Resp Auscultation: clear to auscultation bilaterally, no rales and no wheezes Cardio Rate: regular rate Rhythm: regular rhythm Heart sounds: no murmurs GI Palpation (GI): Soft to palpation, nontender and No hepatosplenomegaly present Auscultation: normal bowel sounds General: Yes no CVA tenderness Back/Spine/Pelvis Back: no CVA tenderness Thoracic/Lumbar Spine: thoracic and lumbar spine normal to inspection Skin Lesions: no lesions Rashes: no rashes Neuro General: patient oriented x3, moves all extremities, no focal motor deficits and CN's II-XI intact bilaterally Cranial nerves: Yes Equal, round and reactive pupils present Cognition (Neuro): normal cognition Gait exam (Neuro): Normal gait present Extrem General: Yes no clubbing, cyanosis or edema Results Reviewed Results Reviewed: Laboratory Tests 03/25/25 03/25/25 07:52 08:00 WBC 5.3 Hgb 15.5 Hct 44.4 Plt Count 224 Sodium 139 Potassium 4.5 Creatinine 1.09 Estimated GFR > 60 Fasting Glucose 121 H Hemoglobin A1c % 5.0 Calcium 9.2 AST 21 ALT 12 Triglycerides 61 Cholesterol 202 H LDL Cholesterol, Calc 122 H HDL Cholesterol 68 PSA Screen 0.57 25-OH Vitamin D Total 29.4 L TSH 2.03 Ur Specific [place] 1.020 Urine Protein Negative Urine Glucose (UA) Negative Urine Blood Negative Urine Nitrite Negative Ur Leukocyte Esterase Negative Coding Level of Care Code Est Pt Prev Care 40-64y(03328) Diagnoses Annual physical exam Z00.00 Left otitis media, unspecified otitis media type H66.92 Otitis media type: unspecified Essential hypertension I10 Pure hypercholesterolemia E78.00 Impaired fasting glucose R73.01 Vitamin D deficiency E55.9 Additional Codes PHQ-9 - 98095 - PHQ-9 Billing: Yes ([id number]) Assessment & Plan Assessment & Plan (1) Annual physical exam: Code(s): Z00.00 - Encounter for general adult medical examination without abnormal findings Category: Medical Plan: Results of his labs done last week reviewed and discussed with patient He had his screening colonoscopy last done with Dr. Gonzalez last year on 08/01/2023 and he will be due for repeat colonoscopy in 3 years (2026) (2) Otitis media of left ear: Code(s): H66.92 - Otitis media, unspecified, left ear Category: Medical Qualifiers: Otitis media type: unspecified Qualified Code(s): H66.92 - Otitis media, unspecified, left ear Plan: Will start patient on Augmentin 875 mg BID x 10 days (3) Essential hypertension: Code(s): I10 - Essential (primary) hypertension Category: Medical Plan: Reinforced low sodium diet - goal is systolic BP of 120 mm or less His blood pressure remains adequately controlled on his current medication Continue Lisinopril 2.5 mg QD Patient is reminded to continue monitoring his blood pressure regularly (4) Pure hypercholesterolemia: Code(s): E78.00 - Pure hypercholesterolemia, unspecified Category: Medical Plan: Patient is advised that his cholesterol levels are mostly unchanged from previous and are within acceptable range Reinforced low cholesterol diet Will have him recheck his labs and fasting lipids in 6 months for follow up (5) Impaired fasting glucose: Code(s): R73.01 - Impaired fasting glucose Category: Medical Plan: His fasting glucose level was up at 121 mg/dL on his recent labs; HgbA1c remains normal at 5.0% Reinforce low calories/low carb diet (6) Vitamin D deficiency: Code(s): E55.9 - Vitamin D deficiency, unspecified Category: Medical Plan: Have advised patient that his vitamin D level is low on his recent labs Will have him start taking Vitamin D3 2000 units QD Plan Follow up in 6 months Orders: Orders Comprehensive [place]. Panel Fast 6 Months E78.00 - Pure hypercholesterolemia, unspecified Lipid Panel 6 Months E78.00 - Pure hypercholesterolemia, unspecified Hemoglobin A1c 6 Months R73.01 - Impaired fasting glucose Complete Blood Count Auto Diff 6 Months D64.9 - Anemia, unspecified Medications: New amoxicillin-pot clavulanate 875-125 mg 1 tab PO BID 20 tabs 0RF 10 days
[2025-04-01 16:03] VITALS: BP 132/80; PULSE 94; O2SAT 97; BMI 24.1
== END 2025-04-01 16:50 | disposition home or self-care (01) ==
LOC: HO.HMCH 15:50
PROVIDERS: PCP Internal Medicine; Visit Provider Internal Medicine
DX: Z00.00 Encounter for general adult medical examination without abnormal findings (principal); H66.92 Otitis media, unspecified, left ear; I10 Essential (primary) hypertension; E78.00 Pure hypercholesterolemia, unspecified; R73.01 Impaired fasting glucose; E55.9 Vitamin D deficiency, unspecified

== ENCOUNTER → 2025-04-01 15:49 | Outpatient (BNVA) | payer OTHER, SELFPAY | PROVIDERS: PCP Internal Medicine; Visit Provider Internal Medicine | DX: Z00.00 Encounter for general adult medical examination without abnormal findings (principal); H66.92 Otitis media, unspecified, left ear; I10 Essential (primary) hypertension; E78.00 Pure hypercholesterolemia, unspecified; R73.01 Impaired fasting glucose; E55.9 Vitamin D deficiency, unspecified; E70.0 Classical phenylketonuria; D64.9 Anemia, unspecified | CPT/HCPCS: 96127; 99396 ==